=== PATIENT | male | born 1945 | race Caucasian/White ===

== ENCOUNTER 2018-05-02 10:34 | Outpatient (CLI) | payer OTHER, SELFPAY ==
[2018-05-03 10:18] LABS: PSA, Diagnostic 2.9 ng/ml (0-6.5)
== END 2018-05-02 10:35 ==
PROVIDERS: PCP Family Medicine; Visit Provider Urology
DX: R97.20 Elevated prostate specific antigen [PSA] (principal); N40.1 Benign prostatic hyperplasia with lower urinary tract symptoms; N13.8 Other obstructive and reflux uropathy
CPT/HCPCS: 36415; 84153

== ENCOUNTER 2018-05-21 10:00 | Outpatient (RCR) | payer OTHER, SELFPAY ==
--- NOTE | 2018-04-25 09:00 | PTTR_ITS ---
DATE: 04/25/18 SUBJECTIVE: Kevin stating he had mild reproduction of sciatica following hip extension exercises we completed last session. This lasted for a few days, then resolved. He has tried to attempt sleeping in his bed for 2-3 nights, but he continues to wake up due to discomfort. He has resorted to his recliner where he sleeps excellent, so he chooses to stay in the recliner, otherwise he has been painfree aside from hip extension episode. Remains compliant with aquatics. Manual therapy: ([id number]). Unilateral knee to chest, figure 4 and supine twist prolonged stretching, prolonged SLR for sciatic nerve floss, end ranges. R sidelying L lumbar facet gapping via log roll grade 4 with hips and knees at 90/90 with LE lowering over the plinth for L sided gapping. Therapeutic procedures ([id number]). * x See flow sheet: Completed intrinsic lumbopelvic femoral stabilization efforts with myself working posterior fascial change as well as TRA and proceeds with wellness activities per my direction. * Direct treatment time: 30 mins Total treatment time: 50 mins A: Continues to move in a forward direction with reduced pain. Demonstrating improved intrinsic activation with controlled breathing, continues to have presentation of remarkable stiffness with transitional movements, transfers and basic mobility about the clinic. Now that his pain is under more control initiate more of a conditioning program and some self spinal mobilization exercises hopefully attend to this without pain exacerbation. Will adjust program per his tolerance. P: Proceed 1x a week per POC. JH/dl
--- NOTE | 2018-05-02 11:15 | PTTR_ITS ---
DATE: 05/02/18 OBJECTIVE: Co-treatment with ROMERO Cm. Please see her note for specifics. Therapeutic procedures ([id number]). * X See flow sheet: For intrinsic core/glut strengthening progressing to functional movement patterns including squats and hip pre's. * X Provided skilled instruction in proper exercise performance: * X Provided skilled manual cues to facilitate proper muscle recruitment and/ or movement pattern: Direct treatment time: 30 minutes Total treatment time: 30 minutes Mag Chowdhury RETAIL WIRELESS ASSOCIATE
--- NOTE | 2018-05-02 12:18 | PTTR_ITS ---
DATE: 05/02/18 SUBJECTIVE: Has felt great since last seeing me, but still unable to sleep in bed without pain. Has been doing almost daily aquatic exercise. OBJECTIVE: KX applied to all codes N/A Manual therapy: ([id number]). Bilateral KTC, Figure 4, Supine twist, SLR prolonged stretches, with end range oscillations as appropriate. B Hip flexor stretching is sidelying. CPA' and UPA' s throughout all lumbar segments extensively. He was then seen by Mag Chowdhury PTA for ther ex routine per my direction, see her note. Direct treatment time: 25 minutes Total treatment time: 25 minutes Assessment: Continues to present with gross hypomobility through B hips, L>R, and segmental limitation through the spine, consistent with his arthritic diagnosis. However, PT management, as seemed to allow for good mobility gains and decompression through the R side, so he is no longer suffering from nerve root compromise, and has resolution of sciatica. Continue with mobilization and strengthening efforts due to his findings of remarkable to limitations and intrinsic weakness and deconditioning through the back and hips, in hopes of improving comfort in bed. Plan: Resume POC in one week. Patient to remain complaint with HEP and aquatics.
--- NOTE | 2018-05-09 12:11 | PTTR_ITS ---
DATE: 05/09/18 SUBJECTIVE: Kevin reporting he has done fairly well. States he stood for long time periods since seeing me at [facility], and sat for tractor pulls. This allowed by exacerbation of central low back pain and left lateral hip discomfort, which is now coming and going. He is still unable to sleep in his bed. OBJECTIVE: Manual therapy: ([id number]). Right Mulligan SLR and prolonged SLR, unilateral knee to chest and figure 4 supine twist. Repeat on the left side, which was much more hypo mobile compared to the right. Complete UPAs and unhairer to the lumbar spine at a Grade 4 with severe hypo mobility noted throughout. IASTM down regulations through the thoracolumbar paraspinals and lumbar fascia. Direct treatment time: 30 minutes Total treatment time: 30 minutes Assessment: Kevin continues to present with a remarkable amount of hypo mobility through the spine consistent with a history of lumbar surgery, as wel as global arthritis. His amount of stiffness is certainly contributing to nerve root compromise in his back. Will continue to attempt decompression and improve mobility of his back with mobilization efforts, as well as with intrinsic strengthening. However, his progress is very slow. Most remarkable lack of change is with his inability to sleep in bed, but his daytime activity level has greatly improved. I think it is fair to have him seek a consultation with [facility] for consideration of injection to improve his tolerance to prolonged sitting as well as sleep. In the meantime, he remains appropriate for P.T. management, for general mobilization to assist with decompression and mobility of the right sided nerve roots and intrinsic core strengthening, but will try to wean frequency down to 1 1/2 to 2 weeks pending his response. Plan: As indicated above seeing patient 1x every 1 1/2 to 2 weeks for continued mobilization of the lumbar spine, dural tissues and hips to improve sacrolumbar mobility as well as intrinsic strengthening. The patient will continue with his independent pool program for self management of symptoms. NAYA/rebecca
--- NOTE | 2018-05-21 08:37 | PTTR_ITS ---
DATE: 05/21/18 SUBJECTIVE: Kevin states he is frustrated he continues to get stiffer and stiffer. He was doing very well up until about 3-4 weeks ago, but he feels despite his compliancy with aquatics and stretching and PT, he is feeling global stiffness through his back and bilateral hips.He intends to follow-up with Dr. Wilcox's office for initiation of further intervention as it is really limiting his capabilities around his home. He feels he cant stand for more than 30-40 min. at a time or lift anything heavy without increasing his either low back discomfort or stiffness, and he still cannot sleep in his bed. His x-ray did diagnose [id number] arthritis at the L hip, and Brenden had stated that until he had groin pain, they wouldn't consider any further intervention,but Kevin feels that it is really limiting him at this point. He also states that he hasn't had a follow-up with his PCP in regards to any other type of bloodwork or any rheumatology visits in the past. He does explain a diet of donut daily every morning and he is borderline diabetic. OBJECTIVE: Manual therapy: ([id number]).Bilateral prolonged hamstring stretching, unilateral and bilateral knee to chest mobilization, bilateral supine twist beginning at 20 degrees rotation bilaterally ending at about 45-50 degrees bilaterally.Figure 4 stretching only about 10 degrees of ER, progressing to about 30 degrees with 90 degree hip flexion. Initially start with 80 degrees hip flexion. Complete double knee to chest lumbar rotation mobilization to 10 degrees, progressing to 40 degrees bilaterally. Pt education: encouraged follow-up with PCP in regards to further consultation with rheumatology or further bloodwork for inflammatory markers. Suggest dietary changes to include reduction, if not complete elimination of gluten and sugar considering his borderline diabetes condition and daily intake of gluten. He was educated as to how this can influence his inflammation in his system. Encouraged to continue to follow-up with Brenden considering his discomfort. Otherwise, continue to encourage 2x/week aquatic interventions. He is welcome to come to our clinic as his schedule allows to utilizing non-WB cardio equipment anytime to encourage mobility of his hips. Direct treatment time: 23 min Total treatment time: 23 min Assessment: Kevin has plateaued at this point. He continues to demonstrate remarkable amount of stiffness to the low back and hips. Since I have treated this pt on and off for 2 or 3 years, this has always been an issue for him. While we have resolved his sciatica symptoms and improved his back pain, his main complaint at this point is of gross stiffness that he feels is worsening despite our mobilization efforts. I think there are likely many factors contributing to Kevin's condition, with his known spinal arthritis, we are aware of his [id number] hip arthritis in his L knee, but he also has some lifestyle choices that are likely encouraging some inflammation. I think it is appropriate for him to follow-up with orthopaedics. Also discuss with his PCP in regards to dietary and bloodwork needs. Plan: PT to be completed on a p.r.n basis for treatment of his discomfort related to his stiffness. Otherwise, he will continue with independent pool therapy. Follow -up with ortho and PCP as documented above. cc:Dr. Wilcox cc:Amanda PERSON/radha
== END 2018-05-25 23:59 | disposition home or self-care (01) ==
LOC: PT 10:00
PROVIDERS: PCP Family Medicine; Referring Provider Emergency Medicine; Visit Provider Emergency Medicine
DX: M54.41 Lumbago with sciatica, right side (principal); M53.3 Sacrococcygeal disorders, not elsewhere classified; M62.81 Muscle weakness (generalized)
CPT/HCPCS: 97110; 97140

== ENCOUNTER → 2018-06-07 00:53 | Outpatient (CLI) | payer OTHER, SELFPAY ==
--- NOTE | 2018-06-07 10:01 | DI.RAD_ITS ---
SYMPTOMS/DIAGNOSIS: LT HIP PAIN, M16.12, PRIMARY OSTEOARTHRITIS LT HIP LEFT HIP INJECTION: Fluoroscopy Time: 3 sec Fluoroscopy was utilized by Dr. Wilcox during the performance of a left hip injection. Please refer to the procedure report for complete details.
[2018-06-07] MEDS: Omnipaque 300 MG/ML 10 ML BTL IJ (11:06)
[2018-06-07] MEDS: methylPREDNISolone ACETATE 80 MG/ML VIAL IM (11:07)
--- NOTE | 2018-06-07 12:15 | W.PROCNOTE ---
Date of service: 06/07/18 Time of Service: 12:18 Procedure Note Date of procedure: 06/07/18 Procedure: Left Hip Injection with Fluoroscopic Guidance Surgeon/Proceduralist/Physician: [place] Wilcox Procedure Diagnosis: Left Hip Osteoarthritis Procedure Indications: Kevin has had persistent pain of the LEFT hip and groin. Noninvasive measures have been tried. To serve as both diagnostic and therapeutic, an injection under fluoroscopy was recommended. I had discussed the risks of the procedure and the patient elected to proceed. Procedure Description: Kevin was greeted in the flouroscopy room. The correct side was identified and the consent was reviewed with the patient and signed. The patient was then placed in the supine position on the fluoroscopy table. The LEFT hip was then prepped with Chloraprep. The anterolateral injection starting point was identiifed by bony landmarks and fluoroscopy. The skin and soft tissue in the tract of the injection was anesthetized with 1% Lidocaine. A spinal needle was then inserted deep into the hip joint at the level of the lateral femoral neck under fluoroscopic guidance. A small amount of Omnipaque solution was injected to confirm intraarticular placement. Once confirmed, the hip was injected with 6cc of 0.5% Bupivicaine and 80mg of Depo-Medrol. A bandaid was placed on the injection site. The patient tolerated the procedure well and noted improvement in pre-injection pain.
== END ==
PROVIDERS: PCP Family Medicine; Visit Provider Student in an Organized Health Care Education/Training Program
DX: M16.12 Unilateral primary osteoarthritis, left hip (principal); M25.552 Pain in left hip
CPT/HCPCS: 20610; 77002; J1040

== ENCOUNTER 2018-06-18 13:15 | Outpatient (REF) | payer OTHER, SELFPAY ==
[2018-06-18 13:43] LABS: HCT 45.5 % (40.0-50.0); HGB 15.9 g/dL (13.5-17.5); Mean Corp. HGB Concentration 34.9 g/dL (32.0-36.0); Mean Corpuscular Hemoglobin 31.9 pg (27.0-33.0); Mean Corpuscular Volume 91.4 fL (80-95); Mean Platelet Volume 11.4 fL (8.0-11.0); Platelet Count 189 x1000/uL (130-400); RBC 4.98 m/cumm (4.50-6.00); White Blood Cell Count 6.45 k/cumm (4.4-10.8)
[2018-06-18 13:59] LABS: ALT 61 U/L (12-78); AST 41 U/L (15-37); Albumin 3.8 g/dL (3.4-5.0); Alkaline Phosphatase 94 U/L (46-116); Anion Gap 10.3 mmol/L (3-11); BUN 14 mg/dL (7-18); Bilirubin, Total 0.7 mg/dL (0.2-1.0); CO2 29.7 mmol/L (21.0-32.0); CREATININE 0.95 mg/dL (0.70-1.30); Calcium 9.3 mg/dL (8.5-10.1); Chloride 102 mmol/L (98-107); Cholesterol 173 mg/dL (50-200); Glucose 199 mg/dL (70-100); HDL Cholesterol 36 mg/dL (40-60); LDL CHOLESTEROL 116 mg/dL (<100); Potassium 3.7 mmol/L (3.5-5.1); Sodium 142 mmol/L (136-145); Total Protein 6.7 g/dL (6.4-8.2); Triglyceride 155 mg/dL (30-150)
== END 2018-06-18 13:35 ==
LOC: NCHCN 13:15
PROVIDERS: PCP Family Medicine; Visit Provider Family Medicine
DX: Z00.00 Encounter for general adult medical examination without abnormal findings (principal); Z13.1 Encounter for screening for diabetes mellitus; Z13.0 Encounter for screening for diseases of the blood and blood-forming organs and certain disorders involving the immune mechanism; Z13.228 Encounter for screening for other metabolic disorders; Z13.220 Encounter for screening for lipoid disorders
CPT/HCPCS: 80053; 80061; 83721; 85027; 83036

== ENCOUNTER → 2018-06-18 14:23 | Outpatient (BNVA) | payer OTHER, SELFPAY | PROVIDERS: Visit Provider Student in an Organized Health Care Education/Training Program | DX: M16.12 Unilateral primary osteoarthritis, left hip (principal) | CPT/HCPCS: 99212; 99213 ==

== ENCOUNTER → 2018-07-19 07:42 | Outpatient (BNVA) | payer OTHER, SELFPAY | PROVIDERS: PCP Family Medicine; Referring Provider Family Medicine; Visit Provider Student in an Organized Health Care Education/Training Program | DX: R69 Illness, unspecified (principal) ==

== ENCOUNTER 2018-07-19 09:59 | Outpatient (CLI) | payer OTHER, SELFPAY ==
--- NOTE | 2018-07-19 10:04 | DI.RAD_ITS ---
SYMPTOM/DIAGNOSIS: PAIN, RT HIP INJECTION RIGHT HIP INJECTION: Fluoroscopy Time: 3 seconds Fluoroscopy was utilized by Dr. Wilcox during right hip injection. Hard copy shows intra-articular injection of the right hip.
[2018-07-19] MEDS: Omnipaque 300 MG/ML 10 ML BTL IJ (10:05)
[2018-07-19] MEDS: methylPREDNISolone ACETATE 80 MG/ML VIAL IM (10:14)
[2018-07-19] MEDS: Bupivacaine 0.5% Pres-Free 10 ML VIAL 5 ML IJ (10:17)
--- NOTE | 2018-07-19 10:36 | W.PROCNOTE ---
Date of service: 07/19/18 Time of Service: 10:36 Procedure Note Date of procedure: 07/19/18 Procedure: Right Hip Injection with Fluoroscopic Guidance Surgeon/Proceduralist/Physician: South Wilcox Procedure Diagnosis: Right Hip Osteoarthritis Procedure Indications: Kevin has had persistent pain of the RIGHT hip and groin. Noninvasive measures have been tried. To serve as both diagnostic and therapeutic, an injection under fluoroscopy was recommended. I had discussed the risks of the procedure and the patient elected to proceed. Procedure Description: Kevin was greeted in the flouroscopy room. The correct side was identified and the consent was reviewed with the patient and signed. The patient was then placed in the supine position on the fluoroscopy table. The RIGHT hip was then prepped with Chloraprep. The anterolateral injection starting point was identiifed by bony landmarks and fluoroscopy. The skin and soft tissue in the tract of the injection was anesthetized with 1% Lidocaine. A spinal needle was then inserted deep into the hip joint at the level of the lateral femoral neck under fluoroscopic guidance. A small amount of Omnipaque solution was injected to confirm intraarticular placement. Once confirmed, the hip was injected with 6cc of 0.5% Bupivicaine and 80mg of Depo-Medrol. A bandaid was placed on the injection site. The patient tolerated the procedure well and noted improvement in pre-injection pain.
== END 2018-07-19 10:19 ==
PROVIDERS: PCP Family Medicine; Visit Provider Student in an Organized Health Care Education/Training Program
DX: M25.551 Pain in right hip (principal); M16.11 Unilateral primary osteoarthritis, right hip
CPT/HCPCS: 20610; 77002; J1040

== ENCOUNTER 2018-07-27 10:47 | Emergency (ER) | payer OTHER, SELFPAY ==
[2018-07-27 11:03] VITALS: BP 146/93; PULSE 67; RESP 16; TEMP 36.7; O2SAT 96
[2018-07-27] MEDS: Tetracaine 0.5% 4 ML BTL (11:15)
[2018-07-27] MEDS: Balanced Salt Solution 15 ML BTL (11:20)
--- NOTE | 2018-07-27 11:25 | ED.GENADUL_ITS ---
Discharge Plan Disposition Patient Disposition: HOME Condition: Stable Discharge Details Chief Complaint: EyeProblem Clinical Impression: Contact lens stuck Primary Care Provider: Amanda Person ED Provider: Maurice Menezes Home Meds and New Rx's Prescriptions: No Action lisinopril-hydrochlorothiazide 1 EACH tablet 1 ea PO DAILY RF: 0 desloratadine [Clarinex] 5 MG tablet 5 mg PO DAILY RF: 0 verapamil [Calan SR] 240 MG tablet extended release 240 mg PO DAILY RF: 0 azelastine [Astelin] 137 MCG aerosol,spray 137 mcg NS DAILY RF: 0 fluticasone 16 GM spray,suspension 16 gm NS DAILY RF: 0 atenolol 50 MG tablet 50 mg PO DAILY RF: 0 finasteride 5 MG tablet 5 mg PO DAILY RF: 0 cyclobenzaprine 10 MG tablet 10 mg PO Q8H PRN (Reason: Muscle Spasm) Qty: 9 RF: 0 Discharge Instructions Instructions: Corneal Abrasion (ED) Additional Instructions: Proceed immediately to [facility] for further treatment and evaluation per Referrals: [facility] [Outside] (Proceed immediately to their office for further treatment of your condition) Discharge Data Discharge Date/Time-TO BE ENTERED AT DEPARTURE: 07/27/18 11:33 Medical Decision Making Patient presenting to the emergency department for chief complaint of getting his lens stuck in his right eye. Patient states that he has tried to remove it multiple times and now his eye is significantly red. Patient states that his vision is as if his contact lens was and but he is unable to remove it. Patient denies any injury or trauma. Perform fluorescein stain and was unable to visualize the contact lens but there is significant redness and swelling noted. Given inability to remove the lens did call and speak with Dr. Lowery whom stated that patient could be discharged to their office and that he would fully evaluate patient's condition. Patient was agreeable to this disposition and stated clear understanding to present straight to their office. Patient is otherwise stable with no other acute medical conditions and vision is intact with no neurological symptoms so I do feel that he is able to be safely discharged. HPI General Mode of arrival: ambulatory . Date/Time Provider Initiated Documentation: 07/27/18 11:10 . Limitations to Documentation: no limitations . Information obtained by: patient and RN notes reviewed . History of Present Illness 72 year old M presents to the emergency department with the chief complaint of Contact lens stuck, described as mild and moderate, with intensity rated at 2. Quality is described as burning, and is localized to the eyes and right. Patient started experiencing this day(s) (1) and it has been constant. No exacerbating factors reported . Patient did receive the following treatments prior to arrival, none Related Data Home Medications Medication Instructions Recorded Confirmed atenolol 50 mg PO DAILY 02/21/18 07/27/18 azelastine [Astelin] 137 mcg NS DAILY 02/21/18 07/27/18 cyclobenzaprine 10 mg PO Q8H PRN #9 tab 02/21/18 07/27/18 desloratadine [Clarinex] 5 mg PO DAILY 02/21/18 07/27/18 finasteride 5 mg PO DAILY 02/21/18 07/27/18 fluticasone 16 gm NS DAILY 02/21/18 07/27/18 lisinopril-hydrochlorothiazide 1 ea PO DAILY 02/21/18 07/27/18 verapamil [Calan SR] 240 mg PO DAILY 02/21/18 07/27/18 Previous Rx's Medication Instructions Recorded cyclobenzaprine 10 mg PO Q8H PRN #9 tab 02/21/18 Allergies Allergy/AdvReac Type Severity Reaction Status Date / Time No Known Allergies Allergy Unverified 07/27/18 11:07 General Stated Complaint: EyeProblem DENA: 4 Review of Systems Constitutional Denies fever(s) and Denies headache(s) Eyes Reports as per HPI, Denies change in vision, Denies eye discharge and Reports eye pain ENT Denies dizziness and Denies headache(s) Cardiovascular Denies chest pain and Denies dyspnea Respiratory Denies dyspnea Gastrointestinal Denies nausea and Denies vomiting Neurologic Denies confusion, Denies dizziness and Denies headache(s) Psychiatric Denies confusion PFSH Social History Smoking/Tobacco Use Status: Never Exam Const General: cooperative and no acute distress Orientation: alert, awake and oriented x3 HENMT Head: normal to inspection, normocephalic and atraumatic Eyes Visual Hart: normal visual hart by confrontation Alignment and Position: alignment normal Periorbital: periorbital findings abnormal Conjunctivae: conjunctival abnormality right conjunctival injection diffuse Sclera: scleral abnormality right scleral injection diffuse Cornea: corneas normal Pupils: PERRL and normal by confrontation EOM: EOM intact bilaterally Direct ophthalmoscopy: normal light reflex Resp Effort & Inspection: normal respiratory effort and able to speak in complete sentences Auscultation: clear to auscultation bilaterally Cardio Rate: regular rate Rhythm: regular rhythm Heart Sounds: S1 normal and S2 normal Neuro General: alert, awake, oriented x3, gait normal, moves all extremities and no meningeal signs Speech: speech normal Course Vital Signs Temperature 36.7 C 07/27/18 11:03 Pulse 67 07/27/18 11:03 Respiratory Rate 16 07/27/18 11:03 Blood Pressure 146/93 H 07/27/18 11:03 Pulse Oximetry 96 07/27/18 11:03 Temperature 36.7 C 07/27/18 11:03 Temperature Source Temporal Artery Scan 07/27/18 11:03 Pulse 67 07/27/18 11:03 Respiratory Rate 16 07/27/18 11:03 Respiratory Effort Non-Labored 07/27/18 11:06 Blood Pressure 146/93 H 07/27/18 11:03 Blood Pressure Position Sitting 07/27/18 11:03 Pulse Oximetry 96 07/27/18 11:03 Oxygen Delivery Method Room Air 07/27/18 11:03 Oxygen Flow Rate 0 07/27/18 11:03 Pain Level 2 07/27/18 11:03
== END 2018-07-27 11:33 | disposition home or self-care (01) ==
LOC: ER 11:36
PROVIDERS: Emergency Provider Nurse Practitioner Family; PCP Family Medicine
DX: H57.89 Other specified disorders of eye and adnexa (principal)
CPT/HCPCS: 99283

== ENCOUNTER 2019-02-20 01:01 | Outpatient (CLI) | payer MEDICARE, SELFPAY ==
--- NOTE | 2019-02-20 10:00 | DIABASSESS_ITS ---
DESCRIPTION: Ken Arreguin presents for diabetes self management newly diagnosed with type 2 diabetes. He has been symptomatic of hyperglycemia with blurred vision at times. NUTRITION: Ken lost 65 pounds / months by changing his diet. Over the past 6 weeks he lost 13 pounds by cutting out lunch. He eats st helenian muffin with peanut butter as his first meal; hamburger/hotdogs, last night faroese toast with nutella. He has frozen yogurt in the evening. STRESS: denies. Has things he enjoys doing. He does not monitor his blood sugars and this was not mentioned. PHYSICAL ACTIVITY: states he walks. MEDICATION: Taking Metformin 500mg twice daily with slight GI side effects.He has no instruction for increasing this. INTERVENTION:Discussed importance of intensive early intervention to prevent medication needs. Reviewed Diabetes Food Guide focused on limiting carbohydrate portions and focusing on protein and vegetables. States he drinks water. Encouraged 150 minutes physical activity per week in a variety of methods including stretching, strengthening and cardiovascular. Random blood sugar today 150mg/dl. DIscussed what this means and he is complimented in improving his blood sugars with lifestyle changes. Discussed monitoring at home and he is wishing to do this. Reviewed procedure for monitoring with demonstration glucometer. 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 PLAN: Ken will balance protein and fat with carbohydrate sources. He will continue his 2 meals a day. request glucometer from his PCP - Nicole will call for Rx. continue physical activity and increase as tolerated He will call his provider if blood sugars are not near goal of less than 150mg/dl after 1 month to see if medication can be increased. He wishes to return for follow up within the month. MNT FOR DIABETES In 1000 Out 10:50 of a 1 hour visitNo DM group education series being offered at this time.
== END 2019-02-20 01:21 ==
PROVIDERS: PCP Family Medicine; Visit Provider Dietitian, Registered
DX: E11.9 Type 2 diabetes mellitus without complications (principal); Z71.3 Dietary counseling and surveillance
CPT/HCPCS: 97802

== ENCOUNTER 2019-02-25 10:03 | Outpatient (CLI) | payer OTHER, SELFPAY ==
--- NOTE | 2019-02-25 09:53 | DI.RAD_ITS ---
SYMPTOM/DIAGNOSIS: PAIN, PLANNING LT JOSE R LEFT HIP: A single view of the hip was obtained and shows marked narrowing of cartilaginous joint space of the hip with significant subchondral sclerosis of the adjacent bones, osteophyte formation of the acetabulum and femoral head and deformity of the femoral head. CONCLUSION: Severe DJD left hip on this single AP view.
== END 2019-02-25 10:23 ==
PROVIDERS: PCP Family Medicine; Referring Provider Family Medicine; Visit Provider Student in an Organized Health Care Education/Training Program
DX: M25.552 Pain in left hip (principal); M16.12 Unilateral primary osteoarthritis, left hip; E11.9 Type 2 diabetes mellitus without complications; I10 Essential (primary) hypertension
CPT/HCPCS: 99213; 73501

== ENCOUNTER 2019-03-21 09:42 | Outpatient (CLI) | payer OTHER, SELFPAY ==
--- NOTE | 2019-03-21 10:07 | HPE_ITS ---
Date of service: 03/21/19 Assessment and Plan (1) Osteoarthritis of left hip: Current visit: No Status: Chronic Left total hip replacement. Details of surgery were discussed with patient as well as risks and pertinent anatomy. All questions were answered. Qualifiers: Osteoarthritis type: primary Qualified Code(s): M16.12 - Unilateral primary osteoarthritis, left hip History of Present Illness Chief Complaint: Left hip pain Narrative: Ken is a 73-year-old male who comes in today for a preop history and physical for a left total hip replacement. He has been dealing with left hip pain that manifests itself as back pain for a few years now. He states that he has pain whenever he walks for long distances, but in the last year or so, it has been bothering him most days. He states that there is always some underlying back pain, but it does get much worse with prolonged walking. He says that if he pushes himself during the day, he gets more severe pain at night, and also into the next day. He has had x-rays performed which show severe arthritis of the left hip with a complete loss of joint space, as well as bone spurs throughout the hip. He has a cam lesion on his femur, and the femoral head appears to be more oblong shape. He has had injections into his left hip which completely eliminated the back pain on the left side, confirming that the pain is coming from his hip. He was also able to get along pretty well after these injections until the most recent injection. He did not get any relief from the most recent injection. Since now injection therapy has become ineffective for him, Dr. Wilcox offers a left total hip replacement which she is anxious to proceed with. Pertinent Surgical Information Ken does have a history of diabetes. His last A1c was done on 02/11/2019, and it was 10.4 at that time. He states that he has changed his diet and is on metformin, and over the past month or so his sugars have been in the 100s. He also states that he feels as though his symptoms have gotten better, and that he is not having as much urinary frequency as he was previously. He will be getting a hemoglobin A1c today during his preop visit, and this will determine if his surgery may have to be delayed for a couple of weeks while he continues to correct these values. Patient denies history of CVA, VT, angina, asthma, COPD, renal or liver disorders, hepatitis, bleeding disorders, immune or thyroid disorders. No complications from anesthesia. Review of Systems Constitutional Denies fever(s) ENT Denies dizziness and Denies sore throat Cardiovascular Denies chest pain, Denies palpitations and Denies dyspnea Respiratory Denies cough and Denies dyspnea Gastrointestinal Denies abdominal pain, Denies melena, Denies hematochezia, Denies diarrhea, Denies nausea and Denies vomiting Genitourinary Denies hematuria and Denies dysuria Neurologic Denies dizziness Endocrine Denies palpitations PFSH Medical History Diabetes mellitus (Chronic) Hypertension (Chronic) History of environmental allergies (Acute) BPH (benign prostatic hyperplasia) (Chronic) Surgical History History of back surgery (Acute) History of carpal tunnel release of both wrists (Acute) Family History Father Heart disease Other Cancer Social History Smoking/Tobacco Use Status: Never Drug use: Never Do you feel safe in your relationship?: Yes Meds Home Medications Medication Instructions Recorded Confirmed Type atenolol 50 mg PO DAILY 02/21/18 03/21/19 History cyclobenzaprine 10 mg PO Q8H PRN #9 tab 02/21/18 03/21/19 Rx finasteride 5 mg PO DAILY 02/21/18 03/21/19 History fluticasone propionate 16 gm NS DAILY PRN 02/21/18 03/21/19 History verapamil [Calan SR] 240 mg PO HS 02/21/18 03/21/19 History levocetirizine 5 mg PO DAILY 03/21/19 03/21/19 History lisinopril-hydrochlorothiazide 1 tab PO DAILY 03/21/19 03/21/19 History metformin 500 mg tablet 500 mg PO BID 03/21/19 03/21/19 History Allergies Allergy/AdvReac Type Severity Reaction Status Date / Time No Known Allergies Allergy Unverified 03/21/19 08:55 Exam [facility] Head: normocephalic and atraumatic General nose exam: no nasal discharge Throat: uvula midline and no uvular edema Other: soft palate rises symmetrically, no erythema Eyes Conjunctivae: conjunctivae normal Sclera: sclerae normal Pupils: PERRL Resp Effort & Inspection: normal respiratory effort Auscultation: clear to auscultation bilaterally and no wheezes Cardio Rate: regular rate Rhythm: regular rhythm Heart Sounds: S1 normal, S2 normal and no murmurs GI Palpation: soft, no hepatosplenomegaly and nontender Auscultation: normal bowel sounds Results Labs : 03/21/19 10:26 03/21/19 10:26
[2019-03-21 10:48] LABS: HCT 46.2 % (40.0-50.0); HGB 16.4 g/dL (13.5-17.5); Mean Corp. HGB Concentration 35.5 g/dL (32.0-36.0); Mean Corpuscular Hemoglobin 31.6 pg (27.0-33.0); Mean Platelet Volume 10.3 fL (8.0-11.0); Platelet Count 258 x1000/uL (130-400); RBC 5.19 m/cumm (4.50-6.00); RBC Distribution Width 13.6 % (11.8-14.1); White Blood Cell Count 7.97 k/cumm (4.4-10.8)
[2019-03-21 11:19] LABS: Hemoglobin A1C 7.6 % (4.5-6.2)
[2019-03-21 11:49] LABS: Anion Gap 10.1 mmol/L (3-11); BUN 12 mg/dL (7-18); CO2 29.9 mmol/L (21.0-32.0); CREATININE 0.96 mg/dL (0.70-1.30); Chloride 103 mmol/L (98-107); Glucose 141 mg/dL (70-100); Potassium 3.6 mmol/L (3.5-5.1); Sodium 143 mmol/L (136-145)
== END 2019-03-21 10:02 ==
PROVIDERS: PCP Family Medicine; Visit Provider Student in an Organized Health Care Education/Training Program
DX: M25.552 Pain in left hip (principal); M16.12 Unilateral primary osteoarthritis, left hip; E11.9 Type 2 diabetes mellitus without complications; I10 Essential (primary) hypertension; Z01.812 Encounter for preprocedural laboratory examination; Z01.818 Encounter for other preprocedural examination
CPT/HCPCS: 36415; 80048; 85027; 86850; 86900; 86901; NC; 83036

== ENCOUNTER 2019-03-27 00:58 | Outpatient (CLI) | payer OTHER, SELFPAY ==
--- NOTE | 2019-03-27 10:00 | DIABASSESS_ITS ---
DESCRIPTION/ASSESSMENT: Ken Arreguin, 73 years old, presents for follow up for diabetes support. Previous A1c 10.4 needing to get this down so he can have hip surgery. A1c this week 7.6. He has lost nearly 20 pounds over the past month according to his scale. He has stopped vanilla coke and all soda; snacks on yogurt or vegetables. Otherwise primarily eating meat and vegetables with occasional small potato or bread. Breakfast is Slovak muffin with egg and emanuel or cheerios/banana. Blood sugars 131-158; 162 before bed. Metformin initially caused diarrhea for him. He is active as his pain allows with walking and swimming.He is scheduled for surgery Monday. INTERVENTION: Discussed maintaining lifestyle changes without feeling deprivation. Discussed medication needs of A1c continues to decrease. Discussed physical activity after surgery. PLAN: He will continue current regimen. He will call if he feels the need for support. Individual MNT __1__ units billed TIME IN: 1000 OUT: 1020 No DM group education series being offered at this time.
== END 2019-03-27 01:18 ==
PROVIDERS: PCP Family Medicine; Visit Provider Dietitian, Registered
DX: Z11.9 Encounter for screening for infectious and parasitic diseases, unspecified (principal); Z71.3 Dietary counseling and surveillance
CPT/HCPCS: 97802

== ENCOUNTER 2019-04-02 10:55 | Inpatient (IN) | payer OTHER, SELFPAY ==
[2019-04-02] VITALS (15 sets, daily range): BP systolic 86–163; BP diastolic 57–94; PULSE 61–93; RESP 14–83; TEMP 35.8–36.7; O2SAT 91–100
[2019-04-02] MEDS: Acetaminophen 500 MG TAB 1000 MG PO ×2 (11:40→19:58)
[2019-04-02] MEDS: Lactated Ringers 1,000 ML 80 ML IV ×3 (11:41→15:49)
[2019-04-02] MEDS: oxyCODONE-CR 10 MG TABCR PO (11:41)
[2019-04-02] MEDS: Celecoxib 200 MG CAP 400 MG PO (11:41)
[2019-04-02] MEDS: ceFAZolin 2 GM/50 ML BAG IVPB (13:10)
[2019-04-02] MEDS: Normal Saline 20 ML VIAL (15:36)
[2019-04-02] MEDS: Bupivacaine 0.25% Pres-Free 30 ML VIAL (15:36)
[2019-04-02] MEDS: Ketorolac 30 MG/ML VIAL (15:36)
--- NOTE | 2019-04-02 15:39 | DI.RAD_ITS ---
SYMPTOMS/DIAGNOSIS: OSTEOARTHRITIS, LEFT HIP LEFT HIP IN THE OR: Fluoroscopy Time: 55.3 sec C-arm fluoroscopy was utilized by Dr. Wilcox and shows a total hip joint replacement in position on the left.
[2019-04-02] MEDS: Albuterol 2.5 MG/3 ML INH SOLN VIAL (16:05)
--- NOTE | 2019-04-02 16:40 | DI.RAD_ITS ---
SYMPTOM/DIAGNOSIS: S/P LT JOSE R PORTABLE AP PELVIS: Two views were obtained and show left hip prosthesis in position. The components appear well seated. Severe degenerative changes noted involving the right hip.
[2019-04-02] MEDS: HYDROmorphone 2 MG/ML VIAL 0.5 MG IVP (18:13)
[2019-04-02] MEDS: metFORMIN 500 MG TAB PO (18:14)
[2019-04-02] MEDS: Insulin Aspart 300 UNITS/3 ML PEN SC (18:15)
[2019-04-02] MEDS: Normal Saline Flush 10 ML SYR IV (18:27)
--- NOTE | 2019-04-02 18:47 | NUR.NOTE ---
Patient received from PACU, approximate arrival time was 1700. Report received from SNEHAL Rodriguez. Patient arrived via stretcher and was transferred to a med/surg bed. Vital signs started. Patient's incision covered with a mepilex and was clean, dry, and intact. Patient denied pain at that time. Patient exhibited significant snoring when asleep and oxygen saturation decreased so patient was put on CO2 monitoring. TEDs on and SCDs applied. Nursing Note:
[2019-04-02] MEDS: Aspirin E.C. 81 MG TABEC PO (19:57)
[2019-04-02] MEDS: Celecoxib 200 MG CAP PO (19:57)
[2019-04-02] MEDS: oxyCODONE 5 MG TAB PO (23:46)
[2019-04-03] VITALS (7 sets, daily range): BP systolic 100–102; BP diastolic 61–65; PULSE 74–85; RESP 14–19; TEMP 36.4–36.8; O2SAT 94–96
[2019-04-03] MEDS: oxyCODONE 5 MG TAB PO (04:59)
[2019-04-03] MEDS: Lactated Ringers 1,000 ML 80 ML IV (04:59)
[2019-04-03 07:25] LABS: HCT 37.5 % (40.0-50.0); HGB 13.3 g/dL (13.5-17.5); Mean Corp. HGB Concentration 35.5 g/dL (32.0-36.0); Mean Corpuscular Hemoglobin 31.9 pg (27.0-33.0); Mean Corpuscular Volume 89.9 fL (80-95); Mean Platelet Volume 11.1 fL (8.0-11.0); Platelet Count 244 x1000/uL (130-400); RBC 4.17 m/cumm (4.50-6.00); RBC Distribution Width 13.2 % (11.8-14.1); White Blood Cell Count 14.91 k/cumm (4.4-10.8)
--- NOTE | 2019-04-03 07:38 | ROE_ITS ---
Date of service: 04/02/19 Time of Service: 16:30 Operative Note DATE OF PROCEDURE: 04/02/19 PRE-OP DIAGNOSIS: Left Hip Osteoarthritis POST-OP DIAGNOSIS: same PROCEDURE: Left Anterior Total Hip Arthroplasty SURGEON: [place] UNDERWRITING ACCOUNT REPRESENTATIVE: Jose Guadalupe Norris ANESTHESIA: spinal ESTIMATED BLOOD LOSS: 1,200 PATHOLOGY: none sent COMPLICATIONS: None Patient was transported to: PACU Patient's condition: stable Implants: 1. Depuy [place] Acetabular Component, 60 mm 2. Depuy Acetabular Liner, 60 x 36 mm 3. Depuy Corail [Standard Collared] Femoral Stem, Size 15 4. Depuy [Altrx Ceramic Femoral Head], Size 36+8.5 mm Indications: I have seen Kevin in clinic for symptoms of hip arthritis, confirmed with radiographic findings. Kevin has exhausted nonoperative methods and was having significant limitations in daily function and desired better function and less pain. I discussed the technical details of a hip replacement. I explained the risks of the procedure to include, but not limited to, bleeding, infection, pain, stiffness, fracture, damage to nerves and vessels, damage to muscles and tendons, loosening, instability, leg length inequality, need for repeat procedure, blood clot and cardiopulmonary demise. Despite these risks, he elected to proceed. Findings: There was significant signs of arthritis throughout the hip. There is a large floor osteophyte as well as neck osteophytes. Additionally, his hip was very tight. I had difficulties gaining access to the acetabulum primarily and had to more extensively release than usual. This resulted in a prolonged operative time and increased blood loss. Procedure Description: Kevin was greeted in the preoperative holding area where the correct side was identified and marked. The consent was reviewed with the patient and signed. The history and physical was updated. All questions were answered. Kevin was taken back to the operating room. A spinal anesthetic was attempted but was unsuccessful. Therefore, he was converted to a general anesthetic. The patient was placed into the supine position on the operating room table. The patient was then positioned onto the ARCH table. Both feet were wrapped with Webrill cotton wrap along with Coban. The feet were placed in specialized boots for the ARCH table, well seated within the boot and secured. SCDs were applied. The patient was then slid down onto a peroneal post and the nonoperative leg was secured in a leg pantoja attached to the table. The operative side was placed into the ARCH table attachment and bed height and positioning was secured. A preoperative AP pelvis was obtained to serve as a reference for determining leg lengths. Prophylactic antibiotics in the form of cefazolin were administered. 1g of Tranxemic Acid was given intravenously within 30 minutes of incision. The left leg was then prepped with Chloraprep and draped in a standard fashion with a large shower-curtain type drape with Iodine impregnated skin protection. A timeout to confirm correct identity, side and site, procedure, allergies, anesthesia, and medical concerns was performed. An obliquely oriented incision was made starting lateral to the ASIS and running distal over the Tensor Fascia Perlita (TFL) muscle belly toward the fibular head, approximately 10cm. The skin and soft tissue was dissected sharply, through Chuck?s fascia, and to the fascia of the TFL. With the fascia and superior border of the IT band identified, the fascia was incised with a new knife just above any perforators from the IT band. The TFL muscle belly was bluntly dissected away from the fascia and moved laterally. The fat between TFL and rectus was identified to ensure the dissection was not within the TFL. Blunt dissection created space between abductors and the capsule and retractor was placed over the lateral femoral neck. The fibers of the rectus femoris tendon were identified and these were freed from the anterior capsule. A second cobra retractor was placed around the medial femoral neck. The TFL was further re tracted laterally to show the deep fascia. Careful dissection through this layer identified three main crossing vessels of the lateral femoral circumflex. These were cauterized in multiple locations and then cut without any noticeable bleeding. The TFL was further released bluntly from the deep fascia to expose anterior hip capsule and fat the Long orthopaedic retractor was then placed beneath the TFL and against sartorius and medial soft tissues to protect and retract the soft tissues. A T-capsulotomy was then performed starting at the superior lateral acetabulum and moving distally to the intertrochanteric ridge. These capsular flaps were tagged with a No. 1 Ethibond and elevated from within. The capsular flaps were released to the shoulder of the lateral neck and to the lesser trochanter to give excellent visualization of the proximal femur. A neck osteotomy was performed using an oscillating saw based on preoperative templates. This cut started in the shoulder and of the lateral neck and exited medially. The saw was at all times directed medially to avoid injury to the greater trochanter. 6cm of traction was applied to the leg and the osteotomy opened. The femoral head was removed with a corkscrew, making sure to protect the TFL on its exit. This was measured on the back table to determing the starting reamer size. Portions of the rectus obscuring visualization were minimally elevated off the superior acetabulum. An anterior retractor was placed over the anterior wall between capsule and labrum. A posterior retractor was placed similarly. This provided excellent visualization. The contents of the cotyloid fossa were removed with electrocautery and the labrum was removed with a knife. There was a notable floor osteophyte. There was significant chondromalacia of the superior acetabulum. Access into the acetabulum is quite difficult. With normal retractor placement in my normal releases of the labrum and the medial capsule off of the femur, I was still unable to gain access with the reamers into the acetabulum. A very limited release was performed of the soft tissues off the anterior acetabulum which gained some anterior excursion. His rectus for Shukri was noted to be's quite tight. I made sure relaxation was on board with anesthesia as well to assist. I move the posterior tractor to a slightly more intracapsular position rather than between the capsule and labrum. This allowed some more excursion of the posterior musculature and allowed access into the acetabulum. Acetabular reaming began with a 53 mm reamer. This first reaming was directed anterior to posterior and medial to get down to the true floor. This was inspected and reamed until the true floor was reached. I then reamed sequentially up to a 59 mm reamer where good fit was obtained. The larger reamers were oriented based on anatomical reference of the anterior and lateral rosales to ensure proper abduction and anteversion. Positioning and size was confirmed with the fluoroscopy. A 60 mm Depuy Plaquemine acetabular component was selected. The acetabulum was reamed around the periphery with the selected acetabular size to prevent a rim fit. The deep tissues were irrigated. The acetabular component was then impacted in a position of about 40-45 degrees of abduction and 15-20 degrees of anteversion, using the patient?s anatomy as the ultimate landmark. Fluoroscopy was used to confirm this. There was excellent office assistant of the acetabular component and the inserting handle was removed. The acetabular liner, Depuy 60 x 36 mm polyethylene liner, was inserted and lined up with the tines of the acetabular component. There was no soft tissue interposition. The liner was then impacted into position and confirmed to be well-seated. A portion of the delmy-articular cocktail was then injected around the acetabulum into the capsule and periosteum. This cocktail consisted of 50cc of 0.25% Bupivicaine and 20cc of Exparel, expanded to a total of 120cc. Traction was released from the femur. The leg was rotated to 120 degrees. Any remaining medial capsule was released until the lesser trochanter was easily palpable. A Zamorano retractor was placed medially. The femur really did not want to move laterally. I continue to work on the medial capsule. I cautiously released a portion of the posterior capsule avoiding complete release and posterior vasculature. The lateral capsule was further released into the shoulder to allow access to the greater trochanter. A Zamorano retractor was placed over the greater trochanter which allowed the trochanter to flip in front of the capsule for excellent exposure. However, the femur still was not elevating enough. Therefore continue to release all remaining capsule off of the greater trochanter all the way to its posterior margin. Obtruator externus was left attached. The leg was brought down into maximal extension and 20 degrees of adduction while ensuring there was no impingement on the acetabulum. Any remnant capsule within the trochanter was released. There was excellent access to the proximal femur. The lateral neck remnant was removed with a rongeur. A blunt canal probe was used to identify the canal and trajectory for later broaching. A box osteotome initiated the broach course. A small curved rasp and a curved curette were used to work laterally. Broaching then began with a size 8 Corail broach. This was inserted manually around the trochanter and into the canal before mallet blows. The broach was seated to a few millimeters below the cut level based on the neck cut and the preoperative template. Sequential broaching was continued until a tight fit was obtained with good rotational control of the femur. A trial standard neck was inserted along with a +5 trial head. The leg was brought out of extension and adduction and then reduced with traction and internal rotation. The leg was stable anteriorly in a position of 30 degrees of extension and 90 degrees of external rotation. Fluoroscopy was used to ensure there was no fracture and the stem was seated well. Leg lengths were checked with an AP pelvis and pelvic reference points. The leg lengths appear to be equal but the offset was still slightly under what his contralateral side had. Therefore, I worked on getting the broach a few millimeters deeper, approximately 2. This was then offset the increase in leg length by going up and had size but again another 2 mm of offset. I then trialed the +8.5 mm head which maintained the leg length and improved the offset. Once content with the desired offset and leg lengths, the leg was brought back into extension, external rotation and adduction. The periosteum and surrounding tissue was injected with remaining portion of the delmy-articular cocktail. The proximal femur was irrigated as well as the deep tissues. The Depuy Corail standard collared stem, size 15, was then manually inserted into the proximal femur making sure to control rotation. It was then malleted into position with light blows, giving breaks to allow bone expansion and decrease risk of fracture. The selected Depuy Altrx Ceramic Head, size 36+8.5 mm, was then placed onto the clean and dry trunnion and secured with impaction onto the tapered fit. The leg was brought back out of extension and adduction and reduced with traction and internal rotation. Stability was confirmed with no shuck at 90 degrees of external rotation and 30 degrees of extension. No impingement through range of motion arc. Final x-ray images were obtained with fluoroscopy to confirm adequate positioning and no intraoperative fracture. There is no noted complication but we did have prolonged operative time which resulted in blood loss of 1200 cc. There is no acute bleeding which was encountered but a constant ooze. The deep tissues were thoroughly irrigated with a pulse lavage. The second dose of TXA 1g was administered intravenously. The capsule was then reapproximated with the previously placed Ethibond sutures. The TFL fascia was finally closed with a No. 2 Stratafix, barbed suture. Deep tissues were then reapproximated with 0 Vicryl and a running 2-0 Vicryl. The skin was closed with a running 4-0 Monocryl in a subcuticular fashion. This was reinforced with skin glue. A Mepilex silver dressing was applied. At the end of the case, all counts were correct. Kevin was transferred to the hospital bed without difficulty and suffering no apparent complication. Kevin has a good prognosis. Physical therapy will start today and without restric tions, weight-bearing as tolerated. Aspirin 81mg BID will be used for DVT prophylaxis.
[2019-04-03 07:51] LABS: Anion Gap 10.1 mmol/L (3-11); BUN 16 mg/dL (7-18); CO2 26.9 mmol/L (21.0-32.0); CREATININE 1.18 mg/dL (0.70-1.30); Calcium 8.8 mg/dL (8.5-10.1); Chloride 102 mmol/L (98-107); Glucose 179 mg/dL (70-100); Potassium 3.6 mmol/L (3.5-5.1); Sodium 139 mmol/L (136-145)
[2019-04-03] MEDS: Aspirin E.C. 81 MG TABEC PO (08:33)
[2019-04-03] MEDS: Pantoprazole 40 MG TABCR PO (08:33)
[2019-04-03] MEDS: Finasteride 5 MG TAB PO (08:33)
[2019-04-03] MEDS: Insulin Aspart 300 UNITS/3 ML PEN SC ×2 (08:33→12:39)
[2019-04-03] MEDS: Normal Saline 1,000 ML 1000 ML IV (08:34)
[2019-04-03] MEDS: Normal Saline Flush 10 ML SYR IV ×2 (08:35→10:39)
--- NOTE | 2019-04-03 09:15 | PT.INIE ---
Date of service: 04/03/19 Time of Service: 08:49 PT Notes Inpatient Physical Therapy Evaluation Date: 04/02/2019 Referring Doctor: South Wilcox MD PT Orders: PT CONSULT: S/P L Anterior JOSE R Precautions: Fall. Standard. WBAT on L LE. Patient Profile/Admitting Diagnosis: Patient is a 73-year-old male with past medical history significant for Diabetes Mellitus and chronic low back pain who has osteoarthritis of left hip S/P anterior total hip arthroplasty on postoperative day 0. PMHX: Medical History Diabetes mellitus (Chronic) Hypertension (Chronic) History of environmental allergies (Acute) BPH (benign prostatic hyperplasia) (Chronic) Surgical History History of back surgery (Acute) History of carpal tunnel release of both wrists (Acute) Social History/Home Situation: Patient lives with in a 2-floor house with 2 steps enter with side posts that he states he could hold onto if needed to get in. He is independent with all aspects of ADLs without the need for an assistive ambulatory device nor adaptive equipment indoors. He uses a 4-4 wheeled walker for outdoors whenever he needs to. 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 Current Functional Limitations: Need for assistance for all transfers and ambulation using a front-wheeled walker Equipment [facility] [place] Subjective: Patient is agreeable to a PT consult and treatment today. He states that his pain has been manageable since this morning. He is hoping that he can go home today. He is agreeable to using a front wheeled walker for now but hopes to eventually go back to using his 4 wheeled walker for outdoor ambulation as soon as he is safe to do so. He states that he has a packet of exercises that he needs to do in order to maximize his mobility level. Objective: General Observation: Patient seen resting in bed. IV in left UE. TEDS on bilateral legs. Agustin catheter in place. Carbon dioxide monitor in place via nasal route. Mepilex Ag on left JOSE R surgical incision. Mental Status: Alert and oriented x4 Pain: 0/10 at rest. 2/10 with mobility activity Vital Signs: Oxygen saturation stayed between 94 to 96% throughout ambulation performance using front wheeled walker. ROM: Right Upper Extremity: Shoulder Flexion WFL. Shoulder abduction WFL. Elbow flexion WFL. Wrist flexion WFL. Functional opening and closing of hand WFL. Left Upper Extremity: Shoulder Flexion WFL. Shoulder abduction WFL. Elbow flexion WFL. Wrist flexion WFL. Functional opening and closing of hand WFL. Right Lower Extremity: Hip flexion WFL. Hip abduction WFL. Knee flexion WFL. Ankle dorsiflexion WFL. Ankle plantarflexion WFL. Left Lower Extremity: Patient is unable to bring the left knee up while seated at edge of bed beyond 90 degrees but was able to do long arc quad without undue discomfort and was able to hold it for 5 to 10 seconds x 5 reps. Hip abduction WFL. Knee flexion WFL. Ankle dorsiflexion WFL. Ankle plantarflexion WFL. Strength: Right Upper Extremity: Shoulder flexors 5/5. Shoulder abductors 5/5. Elbow flexors 5/5. Elbow extensors 5/5. Sales Apprentice strong. Left Upper Extremity: Shoulder flexors 5/5. Shoulder abductors 5/5. Elbow flexors 5/5. Elbow extensors 5/5. Sales Apprentice strong. Right Lower Extremity: Hip flexors 5/5. Hip abductors 5/5. Knee flexors 5/5. Knee extensors 5/5. Ankle dorsiflexors 5/5. Ankle plantarflexors 5/5. Left Lower Extremity:Hip flexors 3-/5. Hip abductors 5/5. Knee flexors 4-/5. Knee extensors 4-/5. Ankle dorsiflexors 5/5. Ankle plantarflexors 5/5. Sensation: Intact as to pain and pressure on bilateral lower extremities. Bed Mobility/Transfers: Rolling independent Supine to sit independent Sit to supine independent Sit to stand SBA Stand to sit SBA Bed to chair SBA Chair to bed SBA Gait: Patient was able to tolerate level surface ambulation of up to 100 feet x 3 using front wheeled walker with only SBA of this PT initially starting off with step to gait pattern but then was eventually able to perform step through gait pattern with pain report of 2/10 on the left hip during each mid stance on the left LE. Gait velocity decrease. Step height on the left side. Patient also tolerated up-and-down three 4 inch steps and two 6 inch steps 3 times with SBA while holding onto bilateral rails using step to gait pattern. Balance: Static Sitting: Good Dynamic Sitting: Good Static Standing: Good Dynamic Standing: Fair Special Tests: Mobility Limitations Standardized Measure [facility] AM-PAC 6 clicks Basic Mobility Inpatient Short Form: Raw Score: 22 CMS Score: 21% deficit Informed Consent/Education: Patient instructed in purpose of PT consult and plan of care. Patient was instructed about standing level balance exercises while holding onto walker or to a sturdy area in the house like the kitchen counter or a sturdy furniture working on heel raises, partial knee bends, and high marches with emphasis given on deep breathing exercises in between each set of exercises. Patient was also instructed on safe techniques and negotiating stairs while holding onto bilateral rails. Assessment: Patient is a 73-year-old male with past medical history significant for Diabetes Mellitus and chronic low back pain who has osteoarthritis of left hip S/P anterior total hip arthroplasty on postoperative day 0. Patient presents with clinical signs and symptoms consistent with current/admitting diagnoses that have resulted to mobility limitations, gait instability, generalized weakness, and impairment of motor control as demonstrated by the following impairment level findings: 1. Decreased strength to hip major muscle groups 2. Impaired standing balance 3. Impaired activity tolerance 4. Limitation of joint range of motion in L hip Impairments are contributing to the following functional limitations: 1. Inability to safely ambulate without assistive device and physical assistance 2. Increase completion time for mobility ADL performance 3. Increased fall risk 4. Inability to negotiate steps alone safely Patient is assessed as a 56735 moderate complexity based on the following: History: Cognitively intact 73-year-old male with past medical history significant for Diabetes Mellitus and chronic low back pain who has osteoarthritis of left hip S/P anterior total hip arthroplasty on postoperative day 0. Examination: Demonstrable impairment in strength, balance, and range of motion with underlying impairments and functional limitations as documented above Presentation:Evolving Decision Makin moderate complexity DISCHARGE RECOMMENDATIONS: Patient goes home today and will need a front wheeled walker to reduce fall risk at discharge destination. collision center manager updated. Marcello huerta that may be him ay benefit from skilled physical therapy services according to orthopedic surgeon timeline recommendations. Patient will be educated and trained on home exercise program per JOSE R exercise protocol in preparation for outpatient physical therapy services. TREATMENT CODE/TIME: 81673 x 30 minutes, 49529 x 15 minutes, 91231 x 12 minutes beginning at 9:36 AM. Thank you very much for this referral. Erica Dutta PT, DPT, [facility]
--- NOTE | 2019-04-03 09:25 | IN_ITS ---
Date of service: 04/03/19 Time of Service: 08:49 PT Notes Inpatient Physical Therapy Evaluation Date: 04/02/2019 Referring Doctor: South Wilcox MD PT Orders: PT CONSULT: S/P L Anterior OJSE R Precautions: Fall. Standard. WBAT on L LE. Patient Profile/Admitting Diagnosis: Patient is a 73-year-old male with past medical history significant for Diabetes Mellitus and chronic low back pain who has osteoarthritis of left hip S/P anterior total hip arthroplasty on postoperative day 0. PMHX: Medical History Diabetes mellitus (Chronic) Hypertension (Chronic) History of environmental allergies (Acute) BPH (benign prostatic hyperplasia) (Chronic) Surgical History History of back surgery (Acute) History of carpal tunnel release of both wrists (Acute) Social History/Home Situation: Patient lives with in a 2-floor house with 2 steps enter with side posts that he states he could hold onto if needed to get in. He is independent with all aspects of ADLs without the need for an assistive ambulatory device nor adaptive equipment indoors. He uses a 4-4 wheeled walker for outdoors whenever he needs to. 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 Current Functional Limitations: Need for assistance for all transfers and ambulation using a front-wheeled walker Equipment [facility]ed[facility] [place] [place] Subjective: Patient is agreeable to a PT consult and treatment today. He states that his pain has been manageable since this morning. He is hoping that he can go home today. He is agreeable to using a front wheeled walker for now but hopes to eventually go back to using his 4 wheeled walker for outdoor ambulation as soon as he is safe to do so. He states that he has a packet of exercises that he needs to do in order to maximize his mobility level. Objective: General Observation: Patient seen resting in bed. IV in left UE. TEDS on bilateral legs. Agustin catheter in place. Carbon dioxide monitor in place via nasal route. Mepilex Ag on left JOSE R surgical incision. Mental Status: Alert and oriented x4 Pain: 0/10 at rest. 2/10 with mobility activity Vital Signs: Oxygen saturation stayed between 94 to 96% throughout ambulation performance using front wheeled walker. ROM: Right Upper Extremity: Shoulder Flexion WFL. Shoulder abduction WFL. Elbow flexion WFL. Wrist flexion WFL. Functional opening and closing of hand WFL. Left Upper Extremity: Shoulder Flexion WFL. Shoulder abduction WFL. Elbow flexion WFL. Wrist flexion WFL. Functional opening and closing of hand WFL. Right Lower Extremity: Hip flexion WFL. Hip abduction WFL. Knee flexion WFL. Ankle dorsiflexion WFL. Ankle plantarflexion WFL. Left Lower Extremity: Patient is unable to bring the left knee up while seated at edge of bed beyond 90 degrees but was able to do long arc quad without undue discomfort and was able to hold it for 5 to 10 seconds x 5 reps. Hip abduction WFL. Knee flexion WFL. Ankle dorsiflexion WFL. Ankle plantarflexion WFL. Strength: Right Upper Extremity: Shoulder flexors 5/5. Shoulder abductors 5/5. Elbow flexors 5/5. Elbow extensors 5/5. Subcontract Administrator strong. Left Upper Extremity: Shoulder flexors 5/5. Shoulder abductors 5/5. Elbow flexors 5/5. Elbow extensors 5/5. Subcontract Administrator strong. Right Lower Extremity: Hip flexors 5/5. Hip abductors 5/5. Knee flexors 5/5. Knee extensors 5/5. Ankle dorsiflexors 5/5. Ankle plantarflexors 5/5. Left Lower Extremity:Hip flexors 3-/5. Hip abductors 5/5. Knee flexors 4-/5. Knee extensors 4-/5. Ankle dorsiflexors 5/5. Ankle plantarflexors 5/5. Sensation: Intact as to pain and pressure on bilateral lower extremities. Bed Mobility/Transfers: Rolling independent Supine to sit independent Sit to supine independent Sit to stand SBA Stand to sit SBA Bed to chair SBA Chair to bed SBA Gait: Patient was able to tolerate level surface ambulation of up to 100 feet x 3 using front wheeled walker with only SBA of this PT initially starting off with step to gait pattern but then was eventually able to perform step through gait pattern with pain report of 2/10 on the left hip during each mid stance on the left LE. Gait velocity decrease. Step height on the left side. Patient also tolerated up-and-down three 4 inch steps and two 6 inch steps 3 times with SBA while holding onto bilateral rails using step to gait pattern. Balance: Static Sitting: Good Dynamic Sitting: Good Static Standing: Good Dynamic Standing: Fair Special Tests: Mobility Limitations Standardized Measure [facility] AM-PAC 6 clicks Basic Mobility Inpatient Short Form: Raw Score: 22 CMS Score: 21% deficit Informed Consent/Education: Patient instructed in purpose of PT consult and plan of care. Patient was instructed about standing level balance exercises while holding onto walker or to a sturdy area in the house like the kitchen counter or a sturdy furniture working on heel raises, partial knee bends, and high marches with emphasis given on deep breathing exercises in between each set of exercises. Patient was also instructed on safe techniques and negotiating stairs while holding onto bilateral rails. Assessment: Patient is a 73-year-old male with past medical history significant for Diabetes Mellitus and chronic low back pain who has osteoarthritis of left hip S/P anterior total hip arthroplasty on postoperative day 0. Patient presents with clinical signs and symptoms consistent with current/admitting diagnoses that have resulted to mobility limitations, gait instability, generalized weakness, and impairment of motor control as demonstrated by the following impairment level findings: 1. Decreased strength to hip major muscle groups 2. Impaired standing balance 3. Impaired activity tolerance 4. Limitation of joint range of motion in L hip Impairments are contributing to the following functional limitations: 1. Inability to safely ambulate without assistive device and physical assistance 2. Increase completion time for mobility ADL performance 3. Increased fall risk 4. Inability to negotiate steps alone safely Patient is assessed as a 66386 moderate complexity based on the following: History: Cognitively intact 73-year-old male with past medical history significant for Diabetes Mellitus and chronic low back pain who has osteoarthritis of left hip S/P anterior total hip arthroplasty on postoperative day 0. Examination: Demonstrable impairment in strength, balance, and range of motion with underlying impairments and functional limitations as documented above Presentation:Evolving Decision Makin moderate complexity DISCHARGE RECOMMENDATIONS: Patient goes home today and will need a front wheeled walker to reduce fall risk at discharge destination. senior manager mmcoe updated. Marcello huerta that may be him ay benefit from skilled physical therapy services according to orthopedic surgeon timeline recommendations. Patient will be educated and trained on home exercise program per JOSE R exercise protocol in preparation for outpatient physical therapy services. TREATMENT CODE/TIME: 33752 x 30 minutes, 26011 x 15 minutes, 83007 x 12 minutes beginning at 9:36 AM. Thank you very much for this referral. Erica Dutta PT, DPT, [facility]
[2019-04-03] MEDS: Ketorolac 15 MG/ML VIAL IVP (10:36)
[2019-04-03] MEDS: Acetaminophen 500 MG TAB 1000 MG PO (10:36)
--- NOTE | 2019-04-03 11:55 | PDOC.CMIN ---
- If Service Date Differs Date of service: 04/03/19 Time of Service: 11:55 Care Management Initial Assess REASON FOR HOSPITALIZATION:: Osteoarthritis of left hip, total left hip 04/02/19 PAST MEDICAL HISTORY/PAST SURGICAL HISTORY:: DM, HTN, BPH PREVIOUS FUNCTIONAL STATUS/SOCIAL/FAMILY SUPPORTS:: Ken is a 73 year old male that lives with his spouse [place] [address]. He has one daughter that lives in [place]. 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 He started going to [place] last year and will continue with this practice for the . He does not have a pcp in [place] however follows up regually with . Ken is independent with ADL's transporation and meals. CURRENT FUNCTIONAL STATUS:: Ken is sitting up in the chair he is engaged, makes a lot of jokes during assessment. He states he is feeling well, minimal pain while sitting. Anticipate he will be discharged home today. He will have his spouse and daughter to assist him at home. ADVANCE DIRECTIVES:: None on file - He will take the forms home with him. Has patient been provided with information about the portal?: Yes Did the patient sign up for the portal?: No CODE STATUS:: Full Code INSURANCE COVERAGE / FINANCIAL ISSUES:: Medicare CURRENT HOME/COMMUNITY SERVICES/EQUIPMENT:: None PRIMARY CARE PHYSICIAN:: POTENTIAL DISCHARGE NEEDS:: FWW, follow up scheduled with PATIENT/FAMILY EDUCATION NEEDS:: Discharge education, limitations and follow up plan of care including ask me three ANTICIPATED BARRIERS TO DISCHARGE:: None TRANSPORTATION:: Via private car with spouse PLAN:: Ken will be discharged home when medically ready per provider. CM coordianted a FWW through [facility], CM reviewed options for DME and [facility] was Pt choice. No other services at this time PT eval the patient and provided instruction.
--- NOTE | 2019-04-03 12:08 | INITIAL_ITS ---
- If Service Date Differs Date of service: 04/03/19 Time of Service: 11:55 Care Management Initial Assess REASON FOR HOSPITALIZATION:: Osteoarthritis of left hip, total left hip 04/02/19 PAST MEDICAL HISTORY/PAST SURGICAL HISTORY:: DM, HTN, BPH PREVIOUS FUNCTIONAL STATUS/SOCIAL/FAMILY SUPPORTS:: Ken is a 73 year old male that lives with his spouse [place] [address]. He has one daughter that lives in [place]. 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 He started going to [place] last year and will continue with this practice for the . He does not have a pcp in [place] however follows up regually with . Ken is independent with ADL's transporation and meals. CURRENT FUNCTIONAL STATUS:: Ken is sitting up in the chair he is engaged, makes a lot of jokes during assessment. He states he is feeling well, minimal pain while sitting. Anticipate he will be discharged home today. He will have his spouse and daughter to assist him at home. ADVANCE DIRECTIVES:: None on file - He will take the forms home with him. Has patient been provided with information about the portal?: Yes Did the patient sign up for the portal?: No CODE STATUS:: Full Code INSURANCE COVERAGE / FINANCIAL ISSUES:: Medicare CURRENT HOME/COMMUNITY SERVICES/EQUIPMENT:: None PRIMARY CARE PHYSICIAN:: POTENTIAL DISCHARGE NEEDS:: FWW, follow up scheduled with PATIENT/FAMILY EDUCATION NEEDS:: Discharge education, limitations and follow up plan of care including ask me three ANTICIPATED BARRIERS TO DISCHARGE:: None TRANSPORTATION:: Via private car with spouse PLAN:: Ken will be discharged home when medically ready per provider. CM coordianted a FWW through [facility], CM reviewed options for DME and [facility] was Pt choice. No other services at this time PT eval the patient and provided instruction.
--- NOTE | 2019-04-03 12:50 | W.PM.DS.N ---
Date of service: 04/03/19 Time of Service: 12:50 DS: Diagnosis Discharge Diagnosis (1) Osteoarthritis of left hip: Status: Chronic Discharge Plan Disposition Patient Disposition: HOME Condition: Good Discharge Details Reason For Visit: (L) HIP DJD Admit Date/Time: 04/02/19 10:55 Admit Provider: South Wilcox Attending Provider: South Wilcox Primary Care Provider: Amanda Person Hospital Course Hospital Course: Patient was admitted to the medical/surgical floor following the procedure. It was tolerated well without any notable medical, surgical, or anesthetic complications. Mobilization began postoperatively. The floyd catheter was removed and voiding spontaneously. Vitals were stable. Physical therapy worked with the patient and was cleared for discharge home. No acute medical issues. Home Meds and New Rx's Prescriptions: New celecoxib 200 mg capsule 200 mg PO BID PRN (Reason: pain) Qty: 60 RF: 1 aspirin 81 mg tablet,delayed release (DR/EC) 81 mg PO BID Qty: 60 RF: 0 acetaminophen 500 mg tablet 1,000 mg PO Q8H PRN (Reason: pain) Qty: 90 RF: 3 pantoprazole 40 mg tablet,delayed release (DR/EC) 40 mg PO DAILY Qty: 30 RF: 0 oxycodone 5 mg tablet 5 mg PO Q4H Qty: 15 RF: 0 Continued metformin 500 mg tablet 500 mg PO BID RF: 0 lisinopril-hydrochlorothiazide 20-12.5 mg Tablet 1 tab PO DAILY RF: 0 levocetirizine 5 mg Tablet 5 mg PO DAILY RF: 0 acetaminophen [Tylenol] 325 mg Capsule 650 mg PO Q4H PRNRF: 0 verapamil [Calan SR] 240 MG tablet extended release 240 mg PO HS RF: 0 fluticasone propionate 16 GM spray,suspension 16 gm NS DAILY PRNRF: 0 atenolol 50 MG tablet 50 mg PO DAILY RF: 0 finasteride 5 MG tablet 5 mg PO DAILY RF: 0 cyclobenzaprine 10 MG tablet 10 mg PO Q8H PRN (Reason: Muscle Spasm) Qty: 9 RF: 0 Discharge Instructions Additional Instructions: Dr. Wilcox?s Total Hip Discharge Instructions Activity: The most important activity is to walk. You should try to take short walks a few times a day. You have no restrictions on movement or positioning, but do not try to force what you do. You will find some stiffness and weakness with hip flexion (lifting your knee). Do not try to strengthen this too early, continue to practice walking and stairs and this will come. - Outpatient physical therapy can be helpful to help return you to a normal gait and improve your flexibility and strength. This can start around 2 weeks. For some patients, it?s not necessary. Usually this is determined at the time of discharge or at the first post-operative visit. - You should wear the KISHA hose on both legs for 4 weeks. Dressing: Keep the surgical dressing in place for at least one week. After the first week it may be removed and replace with light gauze and tape or nothing. It may get wet after 3 days but avoid soaking the dressing. If it gets wet, just lightly pat dry. It is important to always keep some gauze between skin folds, especially when you are sitting. Spend some time with the wound exposed when you are lying flat as the incision does wrinkle onto itself. Medications: - You should take Tylenol and an anti-inflammatory Celebrex as your primary pain control medications - You have been prescribed a stronger pain medication Oxycodone for breakthrough pain, take as needed as prescribed. - You have also been prescribed a stomach acid reduction agent Pantoprozole to help reduce stomach acid and reflux. - You will be taking Aspirin 81mg twice a day for DVT prevention unless instructed otherwise. - If you have constipation you should take Colace or Miralax (both [id number]). It takes most people 3-4 days to have a bowel movement. Follow-up: 2 weeks Stand Alone Forms: Nursing Discharge Form Referrals: South Wilcox MD [ [facility] STAFF PHYSICIAN] - Activity:: Activity as Tolerated Equipment/Supplies:: Walker Diet:: As Tolerated Discharge Orders Discharge Orders: Discharge Order (Routine); Ordered 04/03/19 Ordered By: South Wilcox DS: Data Vitals/I&O Vitals and I&O: Vital Signs Temperature 36.5 C 04/03/19 11:00 Temperature Source Tympanic 04/03/19 11:00 Pulse 79 04/03/19 11:00 Pulse Rhythm Regular 04/03/19 08:16 Respiratory Rate 18 04/03/19 11:00 Respiratory Effort Non-Labored 04/03/19 08:16 Respiratory Depth Normal 04/03/19 08:16 Respiratory Pattern Normal 04/03/19 08:16 Blood Pressure 102/61 04/03/19 11:00 Pulse Oximetry 96 04/03/19 11:00 Respiratory End-tidal CO2 45 04/02/19 16:39 Oxygen Delivery Method Room Air 04/03/19 11:00 Oxygen Flow Rate 0 04/03/19 11:00 Pain Level 1 04/03/19 11:00 Intake & Output 04/02/19 04/03/19 04/03/19 23:59 11:59 23:59 Intake Total 2620 / 2620 2471.333 / 2471.333 Output Total 1625 / 1625 280 / 280 Balance 995 / 995 2191.333 / 2191.333 Intake: IV 2620 / 2620 1911.333 / 1911.333 Oral 560 / 560 Output: Urine 425 / 425 280 / 280 Estimated Blood Loss 1200 / 1200 Other: Urine Color Light Chyna Dark Chyna Urine Appearance Clear Clear Emesis Description None Labs on day of discharge: Labs from last 24 hours 04/03/19 04/03/19 06:15 06:15 WBC 14.91 H RBC 4.17 L Hgb 13.3 L Hct 37.5 L MCV 89.9 MCH 31.9 MCHC 35.5 RDW 13.2 Plt Count 244 MPV 11.1 H Sodium 139 Potassium 3.6 Chloride 102 Carbon Dioxide 26.9 Anion Gap 10.1 BUN 16 Creatinine 1.18 Estimated GFR/1.73 m2 >= 60.00 Glucose 179 H Calcium 8.8 PFSH Medical History Diabetes mellitus (Chronic) Hypertension (Chronic) History of environmental allergies (Acute) BPH (benign prostatic hyperplasia) (Chronic) Surgical History Hx of vasectomy (Acute) History of back surgery (Acute) History of carpal tunnel release of both wrists (Acute) Family History Father Heart disease Other Cancer Social History Smoking/Tobacco Use Status: Never Drug use: Never Do you feel safe in your relationship?: Yes
--- NOTE | 2019-04-03 14:20 | CHAPLAIN ---
Ken was sitting up in his chair when I stopped in. He was pleasant and easily engaged in conversation. This is his first time in a hospital, other than for blood tests. He grew up in [facility], but now lives on [address] [address]. His surgery went well he said and he expects to be going home soon.
== END 2019-04-03 14:57 | disposition home or self-care (01) | DRG 470 ==
LOC: PDS 10:55 → MS 17:15
PROVIDERS: Admitting Provider Student in an Organized Health Care Education/Training Program; PCP Family Medicine; Visit Provider Student in an Organized Health Care Education/Training Program
PROC: 0SRB04A Replacement of Left Hip Joint with Ceramic on Polyethylene Synthetic Substitute, Uncemented, Open Approach (ICD-10-PCS; CPT 27130; principal; 2019-04-02 12:15)
DX: M16.12 Unilateral primary osteoarthritis, left hip (principal); Z96.642 Presence of left artificial hip joint; E11.9 Type 2 diabetes mellitus without complications; I10 Essential (primary) hypertension; N40.0 Benign prostatic hyperplasia without lower urinary tract symptoms
CPT/HCPCS: 27130; 36415; 80048; 85027; 97110; 97162; 97530; NC; 72170; 73501; J0131; J0690; J1100; J1885; J2250; J2405; J3010; J7613

== ENCOUNTER 2019-04-17 10:47 | Outpatient (CLI) | payer OTHER, SELFPAY ==
--- NOTE | 2019-04-17 08:00 | DI.RAD_ITS ---
SYMPTOM/DIAGNOSIS: POST OP LT JOSE R LEFT HIP: Frontal and lateral views. Comparison is 02/25/19 and 04/02/19 The patient has a left total hip replacement. No lucencies are seen in or about the orthopaedic hardware to suggest loosening or infection. There are moderate degenerative changes seen in the lower lumbar spine. There are mild degenerative changes seen in the right hip. The soft tissues are unremarkable. IMPRESSION: Stable left THR.
== END 2019-04-17 11:07 ==
PROVIDERS: PCP Family Medicine; Referring Provider Family Medicine; Visit Provider Student in an Organized Health Care Education/Training Program
DX: Z96.642 Presence of left artificial hip joint (principal); Z47.1 Aftercare following joint replacement surgery; M16.11 Unilateral primary osteoarthritis, right hip; E11.9 Type 2 diabetes mellitus without complications; Z79.84 Long term (current) use of oral hypoglycemic drugs
CPT/HCPCS: 73502

== ENCOUNTER 2019-04-30 10:14 | Outpatient (CLI) | payer OTHER, SELFPAY ==
[2019-05-01 09:59] LABS: PSA, Diagnostic 3.4 ng/ml (0-6.5)
== END 2019-04-30 10:34 ==
PROVIDERS: PCP Family Medicine; Visit Provider Urology
DX: R97.20 Elevated prostate specific antigen [PSA] (principal); N40.1 Benign prostatic hyperplasia with lower urinary tract symptoms; N13.8 Other obstructive and reflux uropathy
CPT/HCPCS: 36415; 84153

== ENCOUNTER → 2019-05-15 13:38 | Outpatient (BNVA) | payer OTHER, SELFPAY | PROVIDERS: PCP Family Medicine; Referring Provider Family Medicine; Visit Provider Student in an Organized Health Care Education/Training Program | DX: Z47.1 Aftercare following joint replacement surgery (principal); Z96.642 Presence of left artificial hip joint; E11.9 Type 2 diabetes mellitus without complications; I10 Essential (primary) hypertension; Z79.84 Long term (current) use of oral hypoglycemic drugs ==

== ENCOUNTER → 2019-06-27 08:06 | Outpatient (BNVA) | payer OTHER, SELFPAY | PROVIDERS: PCP Family Medicine; Referring Provider Family Medicine; Visit Provider Student in an Organized Health Care Education/Training Program | DX: Z47.1 Aftercare following joint replacement surgery (principal); Z96.642 Presence of left artificial hip joint; I10 Essential (primary) hypertension; E11.9 Type 2 diabetes mellitus without complications; Z79.84 Long term (current) use of oral hypoglycemic drugs ==

== ENCOUNTER 2020-04-09 09:01 | Outpatient (CLI) | payer OTHER, SELFPAY ==
--- NOTE | 2020-04-09 07:45 | DI.RAD_ITS ---
EXAM: XR HIP LT AP LAT ONLY CLINICAL HISTORY: annual f/u TECHNIQUE: COMPARISON: CR XR hip LT complete AP pelvis from 04/17/2019 FINDINGS: Two views were obtained. There is a total hip joint replacement in position. The components appear well seated. No other significant bony abnormality seen. IMPRESSION:
== END 2020-04-09 09:21 ==
PROVIDERS: PCP Family Medicine; Referring Provider Family Medicine; Visit Provider Student in an Organized Health Care Education/Training Program
DX: Z96.642 Presence of left artificial hip joint (principal); Z47.1 Aftercare following joint replacement surgery; M25.552 Pain in left hip; E11.9 Type 2 diabetes mellitus without complications; I10 Essential (primary) hypertension; Z79.84 Long term (current) use of oral hypoglycemic drugs
CPT/HCPCS: 99213; 73502

== ENCOUNTER 2020-05-01 01:57 | Outpatient (CLI) | payer OTHER, SELFPAY ==
[2020-05-04 09:22] LABS: PSA, Diagnostic 2.2 ng/mL (0.0-6.5)
== END 2020-05-01 02:17 ==
PROVIDERS: PCP Family Medicine; Visit Provider Urology
DX: R97.20 Elevated prostate specific antigen [PSA] (principal)
CPT/HCPCS: 36415; 84153

== ENCOUNTER 2020-05-27 09:54 | Outpatient (REF) | payer OTHER, SELFPAY ==
[2020-05-27 22:05] LABS: Hemoglobin A1C 6.2 % (<5.7)
[2020-05-27 22:22] LABS: ALT 21 U/L (16-63); AST 18 U/L (15-37); Alkaline Phosphatase 93 U/L (46-116); Anion Gap 9.2 mmol/L (3-11); BUN 12 mg/dL (7-18); Bilirubin, Total 0.6 mg/dL (0.2-1.0); CO2 29.8 mmol/L (21.0-32.0); CREATININE 1.06 mg/dL (0.70-1.30); Calcium 9.8 mg/dL (8.5-10.1); Calculated LDL 106 mg/dL (<100); Chloride 106 mmol/L (98-107); Cholesterol 172 mg/dL (<200); Glucose 137 mg/dL (74-106); HDL Cholesterol 38 mg/dL (40-60); Potassium 4.4 mmol/L (3.5-5.1); Sodium 145 mmol/L (136-145); Total Protein 7.3 g/dL (6.4-8.2); Triglyceride 140 mg/dL (<150)
== END 2020-05-27 10:14 ==
LOC: NCHCN 09:54
PROVIDERS: PCP Family Medicine; Visit Provider Family Medicine
DX: E11.9 Type 2 diabetes mellitus without complications (principal); I10 Essential (primary) hypertension; E66.01 Morbid (severe) obesity due to excess calories
CPT/HCPCS: 80053; 80061; 83036

== ENCOUNTER 2020-06-18 11:15 | Outpatient (REF) | payer OTHER, SELFPAY ==
--- NOTE | 2020-06-18 11:00 | SKI_PTH ---
PATIENT: Ken Arreguin LOC: [facility] U#:[id number] AGE/SX: 74/M ROOM: RE06/18/[address]: Amanda Person : 1945 BED: DIS: 06/18/2020 SPEC #: [id number] RECD: 06/19/20 12:20 STATUS: DEJUAN REJordyn #: [id number] ANIL: 06/18/20 11:[address]: Amanda Person DEPT: Surgical Specimen RECD BY: Felicity Carrillo Tissues: 1 - SKIN BIOPSY(SHAVE/PUNCH) Procedures: SKIN LEVEL 4 Comments: [id number]
== END 2020-06-18 11:35 ==
LOC: NCHCN 11:15
PROVIDERS: PCP Family Medicine; Visit Provider Family Medicine
DX: L82.1 Other seborrheic keratosis (principal)
CPT/HCPCS: 88305

== ENCOUNTER 2021-03-22 11:26 | Outpatient (CLI) | payer OTHER, SELFPAY ==
--- NOTE | 2021-03-22 10:30 | DI.RAD_ITS ---
Exam(s) XR HIP RT COMPLETE AP PELVIS EXAM: XR HIP RT COMPLETE AP PELVIS CLINICAL HISTORY: right hip pain. TECHNIQUE: 2D digital imaging was performed. COMPARISON: CR XR pelvis AP from 04/02/2019 CR XR pelvis AP from 04/02/2019 CR XR HIP LT AP LAT ONLY from 04/09/2020 FINDINGS: Again noted is a left hip prosthesis. Moderate osteoarthritic degenerative changes are noted in the right hip, similar appearance to March 2019. There is significant joint space narrowing which appears unchanged. Bone density is normal. There is a benign synovial pit in the right femoral neck which is unchanged. Small calcification off the superolateral aspect of the acetabulum is also unchanged. IMPRESSION: Moderate-advanced degenerative narrowing of the right hip joint space, exhibiting minimal if any sign ificant change compared to March 2019. Left hip prosthesis again noted which appears satisfactory. DATA REPOSITORY: RADIATION DOSE DELIVERED:
== END 2021-03-22 11:27 | disposition home or self-care (01) ==
LOC: DIORS 11:26
PROVIDERS: PCP Family Medicine; Referring Provider Family Medicine; Visit Provider Student in an Organized Health Care Education/Training Program
DX: M16.11 Unilateral primary osteoarthritis, right hip (principal); M70.61 Trochanteric bursitis, right hip; M25.552 Pain in left hip; M25.551 Pain in right hip
CPT/HCPCS: 99215; 73502

== ENCOUNTER → 2022-04-29 09:50 | Outpatient (BNVA) | payer OTHER, SELFPAY | PROVIDERS: PCP Family Medicine; Referring Provider Family Medicine; Visit Provider Physical Therapy Assistant | DX: Z86.010 Personal history of colon polyps (principal); Z12.11 Encounter for screening for malignant neoplasm of colon ==

== ENCOUNTER 2022-05-09 08:11 | Day surgery (SDC) | payer MEDICARE, SELFPAY ==
--- NOTE | 2022-05-09 06:19 | COLE_ITS ---
Colonoscopy Report Date of procedure: 05/09/22 Pre-op diagnosis general: Colon Cancer Screening and hx of polyps Post-op diagnosis procedure note: same (polyps and diverticulosis) Procedure: Colonoscopy with polyepctomy Surgeon: Niya Galvan Anesthesia Type: General:No Airway Estimated blood loss (mL): 3 Pathology: other (sigmoid polyps x2) Complications: None Disposition: same day Indications: The patient is here for Colonoscopy pre-op.?His last screening in 2014 and was remarkable for adenomatous polyps.??He has no family history of colon cancer. He has not had any bowel habit changes. -Discussed colonoscopy bowel prep as well as the procedure. Discussed possible complications of the procedure to include bleeding, pain, perforation, missed small lesion/polyp, sore throat, aspiration and adverse reaction to the medications. Questions were answered to patient?s satisfaction. No guarantees were implied or given.? Prep: Miralax/Dulcolax Procedure Start Time: 09:55 Procedure End Time: 10:24 Retraction Time: 16 minutes Findings: 2 small polyps and mild diverticulosis Procedure Description: After informed consent was obtained the patient was taken to the procedure room and placed in a left decubitous position. Monitors were applied and a time out was done. The patients name, date of , procedure, allergies to medications and metal in their body was reviewed. The patient was then sedated. Once sedated and comfortable a rectal exam was done. External exam was normal. Internal exam revealed a normal sphincter tone and no palpable masses. The prostate felt smooth and slightly enlarged. The scope was then introduced and retro-flexed. No internal hemorrhoids, polyps or masses were identified on retro-flexion. The scope was then advanced to the cecum without difficulty. The ileocecal vlave and appendiceal orifice were i dentified. The prep was adequate. The scope was then slowly retracted over 14 minutes back into the rectum. Polyps were removed with cold forceps in the sigmoid colon x2. There was mild diverticulosis noted. The scope was removed and the patient was woken up and taken back to Same day surgery in stable condition. The patient tolerated the procedure well and there were no immediate complicatio ns.
--- NOTE | 2022-05-09 06:21 | PDOC.DSDIS_ITS ---
Discharge Plan Disposition Patient Disposition: HOME Condition: Good Discharge Details Reason For Visit: colonoscopy Attending Provider: Niya Galvan Primary Care Provider: Amanda Person Home Meds and New Rx's Prescriptions: Continued glipizide 10 mg tablet 10 mg PO BID Jardiance 10 mg tablet 10 mg PO DAILY aspirin [Adult Aspirin Regimen] 81 mg tablet,delayed release (DR/EC) 81 mg PO DAILY ibuprofen [Advil] 200 mg tablet 400 mg PO Q6H PRN lisinopril-hydrochlorothiazide 20-12.5 mg Tablet 1 tab PO DAILY levocetirizine 5 mg Tablet 5 mg PO DAILY acetaminophen [Tylenol] 325 mg Capsule 650 mg PO Q4H PRN verapamil [Calan SR] 240 MG tablet extended release 240 mg PO HS atenolol 50 MG tablet 50 mg PO DAILY finasteride 5 MG tablet 5 mg PO DAILY Discontinued bisacodyl [Dulcolax (bisacodyl)] 5 mg tablet,delayed release (DR/EC) 5 mg PO ONCE Qty: 4 0RF Rx Instructions: Take according to provider's instructions for colonoscopy prep. polyethylene glycol 3350 17 gram/dose powder 17 g PO ONCE Qty: 238 0RF Rx Instructions: To be taken as directed by prescriber's office for colonoscopy prep. Discharge Instructions Instructions: Diverticulosis (DC) Additional Instructions: Findings: Diverticulosis and 2 small polyps Follow up: depends on final pathology results Please call if you develop: fevers >101.5 Nausea or Vomiting Abdominal pain that is not transient Rectal bleeding that is more then a tbsp A hard abdomen and inability to pass gas DAY SURGERY UNIT POST ENDOSCOPY INSTRUCTIONS Instructions for everyone who is given Anesthesia: For your safety, please do the following for the next 24 Hours: a. Do not drive or operate dangerous equipment b. Do not drink alcohol beverages or use any recreational drugs for the first 24 hours or while taking pain medications. The medications in your body may have a reaction that can be dangerous. c. Do not make any important decisions or sign any important papers 1. Generally there are no restrictions on your activity after a day or so has gone by, but you may feel a bit fatigued for a few days. 2. After you arrive home you may have a light meal and return to a normal diet a s you can tolerate it without feeling sick to your stomach. 3. After surgery, you may feel pain or discomfort. This should be only transient, but if it persists please contact your doctor. 4. If there are any questions regarding the findings of your procedure, please feel free to contact your doctor. 6. If you are unable to contact your doctor with a problem, contact the hospital at [phone]. 7. Continue all your regular medications unless directed otherwise. I understand the above instructions and have no questions. Signature of Patient or Responsible Adult Escort Date/Time Name of Responsible Adult Escort Signature of Nurse Date/Time Activity:: Activity as Tolerated Diet:: high fiber diet Discharge Orders Discharge Orders: Discharge Order (Routine); Ordered 05/09/22 Ordered By: Niya Galvna
[2022-05-09 08:30] VITALS: BP 132/82; PULSE 68; RESP 17; TEMP 36.7; O2SAT 99
[2022-05-09] MEDS: Lactated Ringers 1,000 ML 80 ML IV (09:05)
--- NOTE | 2022-05-09 09:37 | W.ANESPRE ---
General Info Date of Service Date Performed: 05/09/22 Height: 6 ft Weight: 111.6 kg Body Mass Index (BMI): 33.3 Surgical Procedure: Operation Date: 05/09/22 11:05 Proposed Procedure Side Surgeon p Colonoscopy Niya Galvan MD Meds Allergies and Home Medications Allergies Allergy/AdvReac Type Severity Reaction Status Date / Time garlic AdvReac sinus Verified 05/09/22 08:45 congestion and headache Home Medication Medication Instructions Recorded atenolol 50 mg tablet 50 mg PO DAILY 02/21/18 finasteride 5 mg tablet 5 mg PO DAILY 02/21/18 verapamil 240 mg tablet,extended 240 mg PO HS 02/21/18 release (Calan SR) levocetirizine 5 mg tablet 5 mg PO DAILY 03/21/19 lisinopril 20 1 tab PO DAILY 03/21/19 mg-hydrochlorothiazide 12.5 mg tablet acetaminophen 325 mg capsule 650 mg PO Q4H PRN 04/02/19 (Tylenol) aspirin 81 mg tablet,delayed 81 mg PO DAILY 04/22/22 release (Adult Aspirin Regimen) empagliflozin 10 mg tablet 10 mg PO DAILY 04/22/22 (Jardiance) ibuprofen 200 mg tablet (Advil) 400 mg PO Q6H PRN 04/22/22 bisacodyl 5 mg tablet,delayed 5 mg PO ONCE #4 tabs 04/29/22 release (Dulcolax (bisacodyl)) glipizide 10 mg tablet 10 mg PO BID 04/29/22 polyethylene glycol 3350 17 17 g PO ONCE #238 grams 04/29/22 gram/dose oral powder Current Visit Medications: Current Medications Generic Name Dose Route Start Last Admin Trade Name Freq PRN Reason Stop Dose Admin Hyoscyamine Sulfate 0.125 mg 05/09/22 06:21 Hyoscyamine 0.125 Mg Sl/Oral/Chew SL DIRECTED PRN Ringer's Solution 1,000 mls @ 80 mls/hr 05/09/22 06:00 05/09/22 09:05 IV 06/05/22 23:59 80 mls/hr INFUSION JENN Administration IV Miscellaneous Supplies 1 each 05/09/22 06:00 Iv Access IV 06/05/22 23:59 DIRECTED JENN Ondansetron HCl 4 mg 05/09/22 06:21 Ondansetron 4 Mg/2 Ml Vial IVP Q4H PRN PRN Nausea / Vomiting Sodium Chloride 0 ml 05/09/22 06:00 Normal Saline Flush 10 Ml Syr IV 06/05/22 23:59 PRN PRN Sodium Chloride 0 ml 05/09/22 06:00 Normal Saline 10 Ml Vial IJ 06/05/22 23:59 DIRECTED PRN Sterile Water 0 ml 05/09/22 06:00 Water,Injection,Sterile 10 Ml Vial IJ 06/05/22 23:59 DIRECTED PRN PFSH Active Problems Active Problems: Problem Status Onset Code Diabetes mellitus E11.9 Morbid obesity E66.01 Screening for colon cancer Z12.11 Medical History Medical History BPH (benign prostatic hyperplasia) History of environmental allergies Hypertension Lumbar spondylosis Primary osteoarthritis of right hip (04/09/18) Trochanteric bursitis, right hip (04/09/18) Surgical History Surgical History History of back surgery X2 History of carpal tunnel release of both wrists History of total left hip replacement (04/02/19) Dr. Wilcox Hx of vasectomy S/P total left hip arthroplasty Tobacco Smoking/Tobacco Use Status: Never Alcohol Alcohol Intake: never Substance Use Substance use: Never Substance use type: does not use Vital Signs and Lab Results Vital Signs Most Recent Vital Signs in EMR: Most Recent Vital Signs Temp Pulse Resp BP Pulse Ox 36.7 C 68 17 132/82 99 05/09/22 08:30 05/09/22 08:30 05/09/22 08:30 05/09/22 08:30 05/09/22 08:30 Point of Care Results Point of Care Results: Finger Stick Blood Glucose 108 05/09/22 08:43 Lab Results Blood Type / Crossmatch: No Data to Display Complete Blood Count: No Data to Display Complete Metabolic Panel: No Data to Display Liver Function Panel: No Data to Display Coagulation Panel: No Data to Display Cardiac Panel: No Data to Display Arterial Blood Gas: No Data to Display Venous Blood Gas: No Data to Display Pancreas Panel: No Data to Display Thyroid Panel: No Data to Display Infectious Disease: No Data to Display Blood Cultures: No Data to Display Toxicology Panel: No Data to Display Anesthesia Assessment and Plan Anesthesia History Personal History: No History of Anesthesia Complications Family History: No Family History of Anesthesia Complications Exercise Tolerance Exercise Tolerance: Metabolic Equivalents>4 Pertinent Negatives Pertinent Negatives: No Symptoms of GERD, No Major Cardiovascular Symptoms or Complaints, No Major Pulmonary Symptoms or Complaints and No History of CVA/TIA Cardiac & Pulmonary Exam Cardiac Exam: Normal S1/S2 Heart Sounds Pulmonary Exam: Clear Bilateral Breath Sounds Implantable Cardiac Device Does patient have a Pacemaker or an ICD?: No Airway Exam Known Difficult Airway: No Mallampati Class: 3 Mouth Opening: Normal (> 3cm) Thyromental Distance: Greater than 3 cm Neck Range of Motion: Full ROM Neck Circumference: Thick Teeth Condition: Normal Dentition ASA Classification ASA Score: ASA 2 Emergency Case?: No NPO Status NPO Status: NPO Clears >2 hours, Solids >8 hours Anesthesia Plan Resuscitation Status: Full Code Anesthesia Technique: General Anesthesia Airway Planned: Natural Airway Monitors Used: Standard Monitors
[2022-05-09 09:39] VITALS: BMI 33.3
--- NOTE | 2022-05-09 10:22 | BOWEL_PTH ---
PATIENT: Ken Arreguin LOC: [facility] U#:[id number] AGE/SX: 76/M ROOM: RE05/09/[address]: Niya Galvan MD : 1945 BED: DIS: 05/09/2022 SPEC #: [id number] RECD: 05/09/22 10:50 STATUS: DEJUAN REQ #: [id number] ANIL: 05/09/22 10:[address]: Niya Galvan DEPT: Surgical Specimen RECD BY: Jessica Hunt ENTERED: 05/09/22 10:52 SP TYPE: Bowel OTHR DR: Amanda Person Tissues: 1 - BIOPSY BOWEL Procedures: GROSS AND MICRO LEVEL 4 Comments: [id number]
--- NOTE | 2022-05-09 10:32 | W.ANESPOSTOP ---
Postoperative Evaluation Date, Time and Location Date Performed: 05/09/22 Time Performed: 10:33 Patient Location: Day Surgery Unit Vital Signs Most Recent Imported Vital Signs: Most Recent Vital Signs Temp Pulse Resp BP Pulse Ox 36.7 C 68 17 132/82 99 05/09/22 08:30 05/09/22 08:30 05/09/22 08:30 05/09/22 08:30 05/09/22 08:30 Most Recent Manually Entered Vital Signs: Adult Blood Pressure: 111/68 Heart Rate: 72 Respirations: 12 Oxygen Saturation (%): 97 Temperature (C): 36.3 C Pain Score (0-10 Scale): 0 Pain Score Most Recent Pain Score: Most Recent Pain Score Pain Level 0 05/09/22 08:30 Assessment Mental Status: Awake (Alert & Oriented to Patient Baseline) Airway and Respiratory Function: Patent airway with normal (patient baseline) respiratory exam Cardiovascular Function: Hemodynamically Stable Hydration Status: Adequately Hydrated Nausea & Vomiting: No Nausea or Vomiting Pain: Pt. Denies Any Pain Peripheral Nerve Block: Patient did not receive a nerve block
[2022-05-09 10:33] VITALS: BP 111/68; PULSE 64; RESP 26; TEMP 36.2; O2SAT 95
[2022-05-09 10:36] VITALS: BP 111/68; PULSE 72; RESP 12; TEMPC 36.3; O2SAT 97
--- NOTE | 2022-05-09 11:14 | W.ANESPOSTOP ---
Postoperative Evaluation Date, Time and Location Date Performed: 05/09/22 Time Performed: 11:14 Patient Location: Day Surgery Unit Vital Signs Most Recent Imported Vital Signs: Most Recent Vital Signs Temp Pulse Resp BP Pulse Ox 36.2 C L 64 26 H 111/68 95 05/09/22 10:33 05/09/22 10:33 05/09/22 10:33 05/09/22 10:33 05/09/22 10:33 Most Recent Vital Signs Temp Pulse Resp BP Pulse Ox 36.7 C 68 17 132/82 99 05/09/22 08:30 05/09/22 08:30 05/09/22 08:30 05/09/22 08:30 05/09/22 08:30 Most Recent Manually Entered Vital Signs: Adult Blood Pressure: 137/86 Heart Rate: 87 Respirations: 10 Oxygen Saturation (%): 97 Temperature (C): 36.3 C Pain Score (0-10 Scale): 0 Pain Score Most Recent Pain Score: Most Recent Pain Score Pain Level 0 05/09/22 10:33 Assessment Mental Status: Awake (Alert & Oriented to Patient Baseline) Airway and Respiratory Function: Patent airway with normal (patient baseline) respiratory exam Cardiovascular Function: Hemodynamically Stable Hydration Status: Adequately Hydrated Nausea & Vomiting: No Nausea or Vomiting Pain: Pt. Denies Any Pain Peripheral Nerve Block: Patient did not receive a nerve block
[2022-05-09 11:15] VITALS: BP 124/89; BP 137/86; PULSE 65; PULSE 87; RESP 10; RESP 20; TEMP 36.6; TEMPC 36.3; O2SAT 97; O2SAT 98
== END 2022-05-09 12:00 | disposition home or self-care (01) ==
PROVIDERS: PCP Family Medicine; Visit Provider Surgery
PROC: 0DJD8ZZ Inspection of Lower Intestinal Tract, Via Natural or Artificial Opening Endoscopic (ICD-10-PCS; CPT 45378; principal; 2022-05-09 11:00)
DX: Z12.11 Encounter for screening for malignant neoplasm of colon (principal); K63.5 Polyp of colon; K57.30 Diverticulosis of large intestine without perforation or abscess without bleeding; Z86.010 Personal history of colon polyps; E11.9 Type 2 diabetes mellitus without complications; E66.01 Morbid (severe) obesity due to excess calories; I10 Essential (primary) hypertension
CPT/HCPCS: 45380; 88305; J2704

== ENCOUNTER 2023-01-30 09:17 | Outpatient (REF) | payer MEDICARE, SELFPAY ==
[2023-01-30 15:20] LABS: Hemoglobin A1C 5.8 % (<5.7)
[2023-01-30 15:29] LABS: ALT 20 U/L (16-63); AST 16 U/L (15-37); Alkaline Phosphatase 89 U/L (46-116); Anion Gap 6.9 mmol/L (3-11); BUN 15 mg/dL (7-18); Bilirubin, Total 0.6 mg/dL (0.2-1.0); CO2 31.1 mmol/L (21.0-32.0); CREATININE 1.2 mg/dL (0.70-1.30); Calcium 9.9 mg/dL (8.5-10.1); Calculated LDL 88 mg/dL (<100); Chloride 106 mmol/L (98-107); Cholesterol 144 mg/dL (<200); Estimated GFR 63.07 (mL/min/1.73m2); Glucose 101 mg/dL (74-106); HDL Cholesterol 44 mg/dL (40-60); Potassium 4.6 mmol/L (3.5-5.1); Sodium 144 mmol/L (136-145); Total Protein 7.4 g/dL (6.4-8.2); Triglyceride 63 mg/dL (<150)
[2023-01-30 16:33] LABS: Vitamin D 25 Total 40.5 ng/mL (30-100)
== END 2023-01-30 09:18 | disposition home or self-care (01) ==
LOC: NCHCN 09:17
PROVIDERS: PCP Family Medicine; Visit Provider Family Medicine
DX: I10 Essential (primary) hypertension (principal); E11.9 Type 2 diabetes mellitus without complications; E66.01 Morbid (severe) obesity due to excess calories
CPT/HCPCS: 80053; 80061; 82306; 83036

== ENCOUNTER 2023-02-06 08:24 | Outpatient (CLI) | payer MEDICARE, SELFPAY ==
--- NOTE | 2023-02-06 08:17 | DI.RAD_ITS ---
Exam(s) XR KNEE RT 3V AP,LAT,YANE EXAM: XR KNEE RT 3V AP,LAT,YANE CLINICAL HISTORY: Right knee pain. TECHNIQUE: 2D digital imaging was performed. Three views. COMPARISON: No exams were available for comparison FINDINGS: BONES: No acute fracture is present. No bony destructive lesion is seen. Small enthesophyte at the t ibial tubercle. JOINTS: The knee is normally aligned. A small joint effusion is seen. Mild narrowing of the medial f emoral tibial joint space and mild periarticular spurring. SOFT TISSUE: Vascular calcifications. Chronic calcification seen posterior to the femoral condyles c ould represent joint space loose bodies. IMPRESSION: Mild degenerative changes. Question of posterior joint space loose bodies. DATA REPOSITORY: RADIATION DOSE DELIVERED:
== END 2023-02-06 08:25 | disposition home or self-care (01) ==
LOC: DIORS 08:24
PROVIDERS: PCP Family Medicine; Referring Provider Family Medicine; Visit Provider Student in an Organized Health Care Education/Training Program
DX: M17.11 Unilateral primary osteoarthritis, right knee (principal)
CPT/HCPCS: 20610; 73562; J1040

== ENCOUNTER 2024-01-24 15:15 | Outpatient (REF) | payer MEDICARE, SELFPAY ==
[2024-01-24 14:34] LABS: Abs Immature Grans 0.03 10^3/uL (0.0-0.06); Absolute Basophil Count 0.08 10^3/uL (0.0-0.2); Absolute Eosinophil Count 0.23 10^3/uL (0.0-0.7); Absolute Lymphocyte Count 2.15 10^3/uL (1.2-3.4); Absolute Neutrophil Count 2.74 10^3/uL (1.2-6.7); Basophils % 1.4 %; HGB 15.6 g/dL (13.5-17.5); Immature Grans % 0.5 %; Lymphocytes % 37.5 %; MCHC 34.7 % (32.0-36.0); MCV 87 fL (80-95); MPV 10.8 fL (8.0-11.0); Monocytes % 8.7 %; Neutrophils % 47.9 %; Platelet Count 233 10^3/uL (130-400); RDW-SD 43.5 fL; WBC 5.73 10^3/uL (4.4-10.8)
[2024-01-24 15:12] LABS: ALT 15 U/L (16-63); AST 23 U/L (15-37); Albumin 4.2 g/dL (3.4-5.0); Alkaline Phosphatase 101 U/L (46-116); Anion Gap 7.4 mmol/L (3-11); BUN 18 mg/dL (7-18); Bilirubin, Total 0.6 mg/dL (0.2-1.0); CO2 30.6 mmol/L (21.0-32.0); CREATININE 1.1 mg/dL (0.70-1.30); Calcium 9.6 mg/dL (8.5-10.1); Chloride 106 mmol/L (98-107); Estimated GFR 69.57 (mL/min/1.73m2); Glucose 94 mg/dL (74-106); Potassium 3.9 mmol/L (3.5-5.1); Sodium 144 mmol/L (136-145); TSH 1.67 uIU/Ml (0.36-3.74); Total Protein 7.2 g/dL (6.4-8.2)
[2024-01-24 16:48] LABS: Vitamin D 25 Total 38.3 ng/mL (30-100)
== END 2024-01-24 15:16 | disposition home or self-care (01) ==
LOC: NCHCN 15:15
PROVIDERS: PCP Family Medicine; Visit Provider Family Medicine
DX: R00.1 Bradycardia, unspecified (principal)
CPT/HCPCS: 80053; 82306; 84443; 85025

== ENCOUNTER 2024-01-25 13:24 | Outpatient (CLI) | payer MEDICARE, SELFPAY | END 2024-01-25 13:25 | disposition home or self-care (01) | PROVIDERS: PCP Family Medicine; Visit Provider Family Medicine | DX: R00.1 Bradycardia, unspecified (principal) | CPT/HCPCS: 93270 ==

== ENCOUNTER 2024-02-26 09:20 | Outpatient (CLI) | payer MEDICARE, SELFPAY ==
--- NOTE | 2024-02-26 15:13 | W.CARDEVENT ---
Date of service: 02/26/24 Time of Service: 15:13 Cardiac Event Recorder Referring Provider:: Amanda Person Indications:: bradycardia Cardiac Event Note: This is a cardiac event monitor. Patient was monitored for 23 days 5 hours Rhythm throughout was sinus with an average heart rate of 62. Minimum was 39, maximum 99 There were no significant atrial or ventricular dysrhythmias. There was no atrial fibrillation, no high-grade AV block, no pauses greater than 3 seconds There were no apparent patient symptoms
== END 2024-02-26 09:21 | disposition home or self-care (01) ==
LOC: CARDOPNVT 09:20
PROVIDERS: PCP Family Medicine; Visit Provider Internal Medicine Cardiovascular Disease
DX: R00.1 Bradycardia, unspecified (principal)
CPT/HCPCS: 93272

== ENCOUNTER 2024-05-30 10:07 | Outpatient (CLI) | payer MEDICARE, SELFPAY ==
--- NOTE | 2024-05-30 10:57 | DI.RAD_ITS ---
Exam(s) XR HIP RT COMPLETE AP PELVIS EXAM: XR HIP RT COMPLETE AP PELVIS CLINICAL HISTORY: M25.551 Pain in rt hip. TECHNIQUE: 2D digital imaging was performed of the right hip. Three images were obtained. AP pelvis and lateral right hip views were obtained. COMPARISON: CR XR HIP RT COMPLETE AP PELVIS from 03/22/2021 FINDINGS: BONES: No acute fracture is present. No bony destructive lesion is seen. JOINTS: No dislocation present. Note is made of a left total hip replacement which is incompletely im aged on this examination. There is moderate to severe narrowing of the superior joint space of the r ight hip. Subchondral sclerosis is seen in the acetabulum. There is again seen a well corticated os seous density adjacent to the right acetabulum. SOFT TISSUE: Normal. IMPRESSION: Moderately severe degenerative changes seen in the right hip. DATA REPOSITORY: RADIATION DOSE DELIVERED:
== END 2024-05-30 10:27 ==
PROVIDERS: PCP Family Medicine; Visit Provider Family Medicine
DX: M16.11 Unilateral primary osteoarthritis, right hip (principal)
CPT/HCPCS: 73502

== ENCOUNTER → 2024-06-24 08:26 | Outpatient (BNVA) | payer MEDICARE, SELFPAY | PROVIDERS: PCP Family Medicine; Referring Provider Family Medicine; Visit Provider Physician Assistant | DX: M16.11 Unilateral primary osteoarthritis, right hip (principal) | CPT/HCPCS: 20611; J1010 ==

== ENCOUNTER 2025-01-17 00:48 | Outpatient (CLI) | payer MEDICARE, BC, SELFPAY ==
[2025-01-17 11:36] LABS: HCT 48.6 % (40.0-50.0); HGB 16.4 g/dL (13.5-17.5); MCH 29.9 pg (27.0-33.0); MCHC 33.7 % (32.0-36.0); MCV 89 fL (80-95); MPV 10.7 fL (8.0-11.0); Platelet Count 233 10^3/uL (130-400); RBC 5.49 10^6/uL (4.36-5.78); RDW 13.9 % (11.8-14.1); RDW-SD 45.1 fL; WBC 7.65 10^3/uL (4.4-10.8)
[2025-01-17 12:23] LABS: Anion Gap 7.6 mmol/L (3-11); BUN 17 mg/dL (7-18); CO2 31.4 mmol/L (21.0-32.0); CREATININE 1.2 mg/dL (0.70-1.30); Calcium 10.3 mg/dL (8.5-10.1); Chloride 105 mmol/L (98-107); Estimated GFR 62.29 (mL/min/1.73m2); Glucose 100 mg/dL (74-106); Potassium 3.8 mmol/L (3.5-5.1); Sodium 144 mmol/L (136-145)
== END 2025-01-17 00:49 | disposition home or self-care (01) ==
PROVIDERS: PCP Family Medicine; Visit Provider Student in an Organized Health Care Education/Training Program
DX: M16.11 Unilateral primary osteoarthritis, right hip (principal); Z01.818 Encounter for other preprocedural examination
CPT/HCPCS: 36415; 80048; 85027; 99024

== ENCOUNTER 2025-01-28 05:54 | Day surgery (SDC) | payer MEDICARE, BC, SELFPAY ==
--- NOTE | 2025-01-27 18:21 | W.ANESPRE ---
General Info Date of Service Date Performed: 01/28/25 Height: 6 ft Weight: 113.086 kg Body Mass Index (BMI): 33.7 Surgical Procedure: Operation Date: 01/28/25 07:50 Proposed Procedure Side Surgeon p Hip Total Hip Anterior Right [place] MD Meds Allergies and Home Medications Allergies Allergy/AdvReac Type Severity Reaction Status Date / Time garlic AdvReac sinus Verified 01/28/25 06:20 congestion and headache Home Medication ?Medication ?Instructions ?Recorded atenolol 50 mg tablet 50 mg PO DAILY 02/21/18 finasteride 5 mg tablet 5 mg PO DAILY 02/21/18 verapamil 240 mg tablet,extended 240 mg PO HS 02/21/18 release (Calan SR) levocetirizine 5 mg tablet 5 mg PO DAILY 03/21/19 lisinopril 20 1 tab PO DAILY 03/21/19 mg-hydrochlorothiazide 12.5 mg tablet acetaminophen 325 mg capsule 650 mg PO Q4H PRN 04/02/19 (Tylenol) aspirin 81 mg tablet,delayed 81 mg PO DAILY 04/22/22 release (Adult Aspirin Regimen) empagliflozin 10 mg tablet 10 mg PO DAILY 04/22/22 (Jardiance) ibuprofen 200 mg tablet (Advil) 400 mg PO Q6H PRN 04/22/22 glipizide 10 mg tablet 5 mg PO BID 01/17/25 Current Visit Medications: Current Medications Generic Name Dose Route Start Last Admin Trade Name Freq PRN Reason Stop Dose Admin Acetaminophen 1,000 mg 01/28/25 06:00 Acetaminophen 500 Mg Tab PO 01/28/25 23:59 PREOP JENN Celecoxib 400 mg 01/28/25 06:00 Celecoxib 200 Mg Cap PO 01/28/25 23:59 PREOP JENN Ringer's Solution 1,000 mls @ 80 mls/hr 01/28/25 06:00 IV 01/28/25 23:59 INFUSION JENN Cefazolin Sodium/Dextrose 2 gm in 50 mls @ 100 mls/hr 01/28/25 06:00 Ancef Duplex IVPB 01/28/25 23:59 PREOP JENN Tranexamic Acid/Sodium Chloride 1,000 mg in 100 mls @ 600 mls/hr 01/28/25 06:00 IVPB 01/28/25 23:59 DIRECTED [facility] IV Miscellaneous Supplies 1 each 01/28/25 06:00 Iv Access IV 01/28/25 23:59 DIRECTED JENN Sodium Chloride 0 ml 01/28/25 06:00 Normal Saline Flush 10 Ml Syr IV 01/28/25 23:59 PRN PRN Sodium Chloride 0 ml 01/28/25 06:00 Normal Saline 10 Ml Vial IJ 01/28/25 23:59 DIRECTED PRN Sterile Water 0 ml 01/28/25 06:00 Water,Injection,Sterile 10 Ml Vial IJ 01/28/25 23:59 DIRECTED PRN PFSH Active Problems Active Problems: Problem Status Onset Code Osteoarthritis of right hip Acute M16.11 Degenerative joint disease of right knee Acute M17.11 Hyperplastic colon polyp Acute K63.5 Diabetes mellitus Chronic E11.9 Morbid obesity Acute E66.01 Screening for colon cancer Acute Z12.11 Medical History Medical History Lumbar spondylosis History of environmental allergies BPH (benign prostatic hyperplasia) Hypertension Trochanteric bursitis, right hip (04/09/18) Surgical History Surgical History History of colonoscopy (~04/2022) S/P total left hip arthroplasty History of total left hip replacement (04/02/19) Dr. Wilcox Hx of vasectomy History of back surgery X2 History of carpal tunnel release of both wrists Tobacco Smoking/Tobacco Use Status: Never Passive smoking exposure: No Alcohol Alcohol Intake: never Substance Use Substance use: Never Substance use type: does not use Vital Signs and Lab Results Vital Signs Most Recent Vital Signs in EMR: Temp Pulse Resp BP Pulse Ox 36.6 C 68 18 101/70 98 01/28/25 06:17 01/28/25 06:17 01/28/25 06:17 01/28/25 06:17 01/28/25 06:17 Lab Results Blood Type / Crossmatch: No Data to Display Complete Blood Count: White Blood Count 7.65 10^3/uL (4.4-10.8) 01/17/25 10:55 Red Blood Count 5.49 10^6/uL (4.36-5.78) 01/17/25 10:55 Hemoglobin 16.4 g/dL (13.5-17.5) 01/17/25 10:55 Hematocrit 48.6 % (40.0-50.0) 01/17/25 10:55 Platelet Count 233 10^3/uL (130-400) 01/17/25 10:55 Complete Metabolic Panel: Sodium 144 mmol/L (136-145) 01/17/25 10:55 Potassium 3.8 mmol/L (3.5-5.1) 01/17/25 10:55 Chloride 105 mmol/L (98-107) 01/17/25 10:55 Carbon Dioxide 31.4 mmol/L (21.0-32.0) 01/17/25 10:55 BUN 17 mg/dL (7-18) 01/17/25 10:55 Creatinine 1.2 mg/dL (0.70-1.30) 01/17/25 10:55 Est GFR (CKD-EPI 2020) 62.29 (mL/min/1.73m2) 01/17/25 10:55 Calcium 10.3 mg/dL (8.5-10.1) H 01/17/25 10:55 Glucose 100 mg/dL (74-106) 01/17/25 10:55 Hemoglobin A1c 6.5 % (4.5-5.7) H 01/17/25 10:20 Liver Function Panel: No Data to Display Coagulation Panel: No Data to Display Cardiac Panel: No Data to Display Arterial Blood Gas: No Data to Display Venous Blood Gas: No Data to Display Pancreas Panel: No Data to Display Thyroid Panel: No Data to Display Infectious Disease: No Data to Display Blood Cultures: No Data to Display Toxicology Panel: No Data to Display Anesthesia Assessment and Plan Anesthesia History Personal History: No History of Anesthesia Complications Family History: No Family History of Anesthesia Complications Exercise Tolerance Exercise Tolerance: Metabolic Equivalents>4 Cardiac & Pulmonary Exam Cardiac Exam: Normal S1/S2 Heart Sounds Pulmonary Exam: Clear Bilateral Breath Sounds Implantable Cardiac Device Does patient have a Pacemaker or an ICD?: No Airway Exam Known Difficult Airway: No Mallampati Class: 3 Mouth Opening: Normal (> 3cm) Thyromental Distance: Greater than 3 cm Neck Range of Motion: Full ROM Neck Circumference: Thick Teeth Condition: Normal Dentition ASA Classification ASA Score: ASA 2 Emergency Case?: No NPO Status NPO Status: NPO Clears >2 hours, Solids >8 hours Anesthesia Plan Resuscitation Status: Full Code Anesthesia Technique: General Anesthesia Airway Planned: Endotracheal Tube Monitors Used: Standard Monitors Preoperative Comments:: 79 yo male for JOSE R. Sig PMHx: HTN (atenolol, lisinopril, HCTZ, verapamil), DM2 (last A1c 6.5. Jardiance, glipizide), lumbar spondylosis/back surgery x 2, BPH. Previous Anes: - colo, prop, natural airway, no issues. - JOSE R, fent/sevo/prop, maya 2 grade 3, glide 4 grade 1. spinal was attempted w/o success? Discussed his previous JOSE R and spinal/general. He expressed frustration with how groggy he was post operatively. Back examined and surgical scar right in spinal path. He would like to proceed as GA. Discussed usual risks and also POUR and dizziness as related to his low BP and BPH.
[2025-01-28] VITALS (24 sets, daily range): BP systolic 94–130; BP diastolic 61–82; PULSE 54–68; RESP 11–25; TEMP 36.5–36.7; O2SAT 95–100; BMI 33.7
[2025-01-28] MEDS: Celecoxib 200 MG CAP 400 MG PO (06:35)
[2025-01-28] MEDS: Acetaminophen 500 MG TAB 1000 MG PO (06:35)
[2025-01-28] MEDS: Lactated Ringers 1,000 ML 80 ML IV (06:57)
--- NOTE | 2025-01-28 07:14 | W.PM.DSUDISC ---
Date of service: 01/28/25 Discharge Plan Disposition Patient Disposition: Home Condition: Good Discharge Details Reason For Visit: Right hip DJD Attending Provider: [place] Wilcox Primary Care Provider: Amanda Person Home Meds and New Rx's Prescriptions: New celecoxib [Celebrex] 200 mg capsule 200 mg PO BID PRNQty: 60 0RF Rx Instructions: Take one tablet twice daily for pain and inflammation aspirin 81 mg tablet,delayed release (DR/EC) 81 mg PO BID 30 Days Qty: 60 0RF acetaminophen 500 mg tablet 1,000 mg PO Q8H PRN Qty: 90 0RF Rx Instructions: Take two tablets up to every 8 hours as needed for pain pantoprazole 40 mg tablet,delayed release (DR/EC) 40 mg PO DAILY Qty: 14 0RF dexamethasone 4 mg tablet 4 mg PO DAILY Qty: 2 0RF Rx Instructions: Take one tablet once daily for two days docusate sodium [Colace] 100 mg capsule 100 mg PO BID Qty: 28 0RF oxycodone 5 mg tablet 5 mg PO Q6H PRNQty: 12 0RF Rx Instructions: Take one tablet up to every 6 hours as needed for severe postoperative pain Continued glipizide 10 mg tablet 5 mg PO BID Jardiance 10 mg tablet 10 mg PO DAILY lisinopril-hydrochlorothiazide 20-12.5 mg Tablet 1 tab PO DAILY levocetirizine 5 mg Tablet 5 mg PO DAILY verapamil [Calan SR] 240 MG tablet extended release 240 mg PO HS atenolol 50 MG tablet 50 mg PO DAILY finasteride 5 MG tablet 5 mg PO DAILY Discontinued aspirin [Adult Aspirin Regimen] 81 mg tablet,delayed release (DR/EC) 81 mg PO DAILY ibuprofen [Advil] 200 mg tablet 400 mg PO Q6H PRN Patient Comments: pt. reports taking aleve acetaminophen [Tylenol] 325 mg Capsule 650 mg PO Q4H PRN Discharge Instructions Additional Instructions: Total Hip Discharge Instructions Activity: The most important activity is to walk. You should try to take short walks a few times a day. You have no restrictions on movement or positioning, but do not try to force what you do. You will find some stiffness and weakness with hip flexion (lifting your knee). Do not try to strengthen this too early, continue to practice walking and stairs and this will come. - Outpatient physical therapy can be helpful to help return you to a normal gait and improve your flexibility and strength. This can start around 2 weeks. For some patients, it?s not necessary. Usually this is determined at the time of discharge or at the first post-operative visit. - You should wear the KISHA hose on both legs for 2 weeks. Dressing: Keep the surgical dressing in place for at least one week. After the first week it may be removed and replace with light gauze and tape or nothing. It may get wet after 3 days but avoid soaking the dressing. If it gets wet, just lightly pat dry. It is important to always keep some gauze between skin folds, especially when you are sitting. Spend some time with the wound exposed when you are lying flat as the incision does wrinkle onto itself. Medications: - You should take Tylenol and an anti-inflammatory Celebrex as your primary pain control medications. If the Celebrex is too expensive or not covered, please call the office for another alternative (Advil/Ibuprofen or Naproxen/Aleve). - You have been prescribed a stronger pain medication Oxycodone for breakthrough pain, take as needed as prescribed. - You have also been prescribed a stomach acid reduction agent Pantoprozole to help reduce stomach acid and reflux. - You have also been prescribed Decadron to help with post-operative nausea and pain. You will take this for two days starting tomorrow. - You will be taking Aspirin 81mg twice a day for DVT prevention unless instructed otherwise. - If you have constipation you should take Colace (which has been prescribed) or Miralax (which is available [id number]). It takes most people 3-4 days to have a bowel movement. Follow-up: 2 weeks If you have any acute concerns or questions, please do not hesitate to contact the office at [phone]. You may contact Dr. Wilcox with any questions after hours through the hospital at [phone] or on his cell phone at [phone]. Equipment/Supplies: Walker Activity:: Elevate Remove Dressings/Wound Care:: Do Not Remove Shower/Bathe:: Cover Diet:: As Tolerated Discharge Orders Discharge Orders: Discharge Order (Routine); Ordered 01/28/25 Ordered By: Omayra Gruber
[2025-01-28] MEDS: ceFAZolin 2 GM/50 ML BAG IVPB (07:39)
[2025-01-28] MEDS: TRANEXAMIC ACID/SOD. CHL. 1,000 MG/100 ML BAG 600 MG IVPB (07:45)
--- NOTE | 2025-01-28 08:55 | DI.RAD_ITS ---
Exam(s) XR HIP RT IN OR EXAM: XR HIP RT IN OR CLINICAL HISTORY: osteoarthritis right hip. TECHNIQUE: 2D digital imaging was performed. COMPARISON: No exams were available for comparison FINDINGS: Fluoroscopy provided during right hip arthroplasty. See procedure report for details. Total fluoroscopy time 25.8 seconds IMPRESSION: Radiation exposure index/cumulative dose: jo Matias= 6.0263 mGy DATA REPOSITORY: RADIATION DOSE DELIVERED:
--- NOTE | 2025-01-28 08:59 | ROE_ITS ---
Operative Note Operative Note PRE-OP DIAGNOSIS: Right Hip Osteoarthritis POST-OP DIAGNOSIS: same PROCEDURE: Right Anterior Total Hip Arthroplasty with Intraoperative Navigation SURGEON: [place] Wilcox PLASTER APPLICATOR: Omayra Gruber ANESTHESIA TYPE: Spinal Refer to Anesthesia Record ESTIMATED BLOOD LOSS: 250 PATHOLOGY: none sent TOURNIQUET TIME: 0 COMPLICATIONS: None Patient was transported to: PACU Patient's condition: stable Implants: 1. Depuy [place] Acetabular Component, 58mm 2. Depuy Acetabular Liner, [id number] 3. Depuy Actis High Offse Collared Femoral Stem, Size 9 4. Depuy Altrx Ceramic Femoral Head, Size 36+5mm Indications: I have seen Kevin in clinic for symptoms of hip arthritis, confirmed with radiographic findings. He has exhausted nonoperative methods and was having significant limitations in daily function and desired better function and less pain. I discussed the technical details of a hip replacement. I explained the risks of the procedure to include, but not limited to, bleeding, infection, pain, stiffness, fracture, damage to nerves and vessels, damage to muscles and tendons, loosening, instability, leg length inequality, need for repeat procedure, blood clot and cardiopulmonary demise. Despite these risks, Kevin elected to proceed. Findings: There was significant signs of arthritis throughout the hip. Procedure Description: Kevin was greeted in the preoperative holding area where the correct side was identified and marked. The consent was reviewed with the patient and signed. The history and physical was updated. All questions were answered. He was taken back to the operating room. A general anesthestic was then administered. The feet were wrapped with cast padding and Coban and then placed into the boot liners and then into the boots. Care was taken to protect the skin and make sure the heels were fully down and the boots were stable. The patient was then positioned onto the HANA table. Both legs were held in a neutral position. SCDs were applied. The patient was then slid down onto a peroneal post. Prophylactic antibiotics in the form of Cefazolin were administered. 1g of Tranxemic Acid was given intravenously within 30 minutes of incision. The right leg was then prepped with Chloraprep and draped in a standard fashion. A second prep with Chloraprep was performed prior to placement of a shower-curtain type drape with Iodine impregnated skin prote ction. A timeout to confirm correct identity, side and site, procedure, allergies, anesthesia, and medical concerns was performed. An obliquely oriented incision was made starting lateral to the ASIS and running distal over the Tensor Fascia Perlita (TFL) muscle belly toward the fibular head, approximately 10cm. The skin and soft tissue was dissected sharply, through Chuck?s fascia, and to the fascia of the TFL. With the fascia and superior border of the IT band identified, the fascia was incised with a new knife just above any perforators from the IT band. The TFL muscle belly was bluntly dissected away from the fascia and moved laterally. The fat between TFL and rectus was identified to ensure the dissection was not within the TFL. Blunt dissection created space between abductors and the capsule and retractor was placed over the lateral femoral neck. The fibers of the rectus femoris tendon were identified and these were freed from the anterior capsule. A second cobra retractor was placed around the medial femoral neck. The TFL was further retracted laterally to show the deep fascia. Careful dissection through this layer identified three main crossing vessels of the lateral femoral circumflex. These were cauterized in multiple locations and then cut without any noticeable bleeding. The TFL was further released bluntly from the deep fascia to expose anterior hip capsule and fat The soft tissue orthopaedic retractor was then placed beneath the TFL and against sartorius and medial soft tissues to protect and retract the soft tissues. A T-capsulotomy was then performed starting at the superior lateral acetabulum and moving distally to the intertrochanteric ridge. These capsular flaps were tagged with a No. 1 Vicryl and elevated from within. The capsular flaps were released to the shoulder of the lateral neck and to the lesser trochanter to give excellent visualization of the proximal femur. A neck osteotomy was performed using an oscillating saw based on preoperative templates. This cut started in the shoulder and of the lateral neck and exited medially. The saw was at all times directed medially to avoid injury to the greater trochanter. Gross traction was applied to the leg and the osteotomy opened. The femoral head was removed with a corkscrew, making sure to protect the TFL on its exit. Traction was released after head removal. This was measured on the back table to determine the starting reamer size. Portions of the rectus obscuring visualization were minimally elevated off the superior acetabulum. An anterior retractor was placed over the anterior wall between capsule and labrum and attached to the Gripper retraction system. The femur was rotated to 90 degrees and medial capsule was fully released until the lesser trochanter was palpable and visible; the femur was returned to 30 degrees. A posterior retractor was placed similarly between capsule and labrum. This provided excellent visualization. The contents of the cotyloid fossa were removed with electrocautery and the labrum was removed with a knife. There was a notable floor osteophyte. There was significant chondromalacia of the superior acetabulum. Acetabular reaming began with a 53mm reamer. This first reaming was directed anterior to posterior and medial to get down to the true floor. This was inspected and reamed until the true floor was reached. The anterior retractor was then released and entry and exit was provided by traction on the capsular flaps. I then reamed sequentially up to a 58mm reamer where good fit was obtained. The larger reamers were oriented based on anatomical reference of the anterior and lateral rosales to ensure proper abduction and anteversion. Positioning and size was confirmed with the fluoroscopy. A 58mm Depuy [place] acetabular component was selected. The acetabulum was reamed around the periphery with the selected acetabular size to prevent a rim fit. The deep tissues were irrigated. The acetabular component was then impacted in a position of about 40-45 degrees of abduction and 15-20 degrees of anteversion, using the patient?s anatomy as the ultimate landmark. Fluoroscopy was used to confirm this. There was excellent sizing machine and drier operator of the acetabular component and the inserting handle was removed. The acetabular liner, Depuy [id number] polyethylene liner, was inserted and lined up with the tines of the acetabular component. There was no soft tissue interposition. The liner was then impacted into position and confirmed to be well-seated. A portion of the delmy-articular cocktail was then injected around the acetabulum into the capsule and periosteum. This cocktail consisted of 123mg of Ropivacaine, 0.25mg of Epinephrine, 0.04mg of Clonidine, and 15mg of Ketorolac, diluted to 50cc. The leg was rotated to 120 degrees. Any remaining medial capsule was released until the lesser trochanter was easily palpable. A retractor was placed medially. The lateral capsule was further released into the shoulder to allow access to the greater trochanter. A Zamorano retractor was placed over the greater trochanter which allowed the trochanter to flip in front of the capsule for excellent exposure. The leg was brought down into maximal extension and 20 degrees of adduction while ensuring there was no impingement on the acetabulum. Any remnant capsule within the trochanter was released. Piriformis and obturator externis were identified and protected. There was excellent access to the proximal femur. The lateral neck remnant was removed with a rongeur. A blunt canal probe was used to identify the canal and trajectory for later broaching. A box osteotome initiated the broach course. A small curved rasp and a curved curette were used to work laterally. Broaching then began with a starter Actis broach. This was inserted manually around the trochanter and into the canal before mallet blows. The broach was seated to the neck cut level based on the neck cut and the preoperative template. Sequential broaching was continued with the Inbenta pneumatic broaching device until a tight fit was obtained with good rotational control of the femur. A trial standard neck was inserted along with a +8.5 trial head. The leg was brought out of extension and adduction and then reduced with traction and internal rotation. The leg was stable anteriorly in a position of 30 degrees of extension and 90 degrees of external rotation. Fluoroscopy was used to ensure there was no fracture and the stem was seated well. Leg lengths were checked with an AP pelvis and pelvic reference points. LoginRadius navigation system was used to confirm appropriate positioning and leg length and offset. This slightly over-corrected the leg length and under-corrected the offset. This was corrected by high offset +5mm head. Once content with the desired offset and leg lengths, the leg was brought back into extension, external rotation and adduction. The periosteum and surrounding tissue was injected with remaining portion of the delmy-articular cocktail. The proximal femur was irrigated as well as the deep tissues. The Depuy Actis High Offset collared stem, size 9, was then manually inserted into the proximal femur making sure to control rotation. It was then malleted into position with light blows, giving breaks to allow bone expansion and decrease risk of fracture. The selected Depuy Altrx Ceramic Head, size 36+5mm, was then placed onto the clean and dry trunnion and secured with impaction onto the tapered fit. The leg was brought back out of extension and adduction and reduced with traction and internal rotation. Stability was confirmed with no shuck at 90 degrees of external rotation and 30 degrees of extension. No impingement through range of motion arc. Final x-ray images were obtained with fluoroscopy to confirm adequate positioning and no intraoperative fracture. The deep tissues were thoroughly irrigated with Surgiphor, betadine solution. This was allowed to sit in the wound for 3 minutes before being thoroughly irrigated out with normal saline. The capsule was then reapproximated with the previously placed sutures and the indirect head of the rectus was inspected and reapproximated with a #1 Vicryl. The TFL fascia was finally closed with a No. 2 Stratafix, barbed suture. Deep tissues were then reapproximated with 0 Vicryl and a running 2-0 Vicryl. The skin was closed with a running 4-0 Monocryl in a subcuticular fashion. This was reinforced with skin glue. A Mepilex silver dressing was applied. At the end of the case, all counts were correct. Kevin was transferred to the hospital bed without difficulty and suffering no apparent complication. Kevin has a good prognosis. Physical therapy will start today and without res trictions, weight-bearing as tolerated. Aspirin 81mg BID will be used for DVT prophylaxis. Date of Procedure: 01/28/25
[2025-01-28] MEDS: fentaNYL 100 MCG/2 ML VIAL IVP ×2 (09:39→09:49)
--- NOTE | 2025-01-28 09:40 | W.ANESPOSTOP ---
Postoperative Evaluation Date, Time and Location Date Performed: 01/28/25 Time Performed: 09:40 Patient Location: PACU Vital Signs Most Recent Imported Vital Signs: Most Recent Vital Signs Temp Pulse Resp BP Pulse Ox 36.6 C 54 L 20 106/65 99 01/28/25 09:28 01/28/25 09:25 01/28/25 09:25 01/28/25 09:25 01/28/25 09:25 Pain Score Most Recent Pain Score: Most Recent Pain Score Pain Level 4 01/28/25 09:28 Assessment Mental Status: Awake (Alert & Oriented to Patient Baseline) Airway and Respiratory Function: Patent airway with normal (patient baseline) respiratory exam Cardiovascular Function: Hemodynamically Stable Hydration Status: Adequately Hydrated Nausea & Vomiting: No Nausea or Vomiting Pain: Pain is tolerable per patient Peripheral Nerve Block: Patient did not receive a nerve block
[2025-01-28] MEDS: Tranexamic Acid 650 MG TAB 1300 MG PO (10:32)
--- NOTE | 2025-01-28 11:19 | PT.INIE ---
PT Notes Visit Reasons: Right hip DJD Physical Therapy Day Surgery Initial Evaluation Date: 01/28/2025 Referring Doctor: Omayra Gruber APRN; Dr Wilcox PT Orders: PT CONSULT: s/p Ortho surgery Precautions: WBAT RLE Patient Profile/Admitting Diagnosis: Pt is a 79yo male presenting s/p elective Right JOSE R under general anesthesia by Dr Wilcox on 01/28/25. Post op uncomplicated. PMHX: OA R ight hip right knee DM Morbid obesity Lumbar spondylosis History of environmental allergies BPH (benign prostatic hyperplasia) Hypertension Trochanteric bursitis, right hip (04/09/18) Surgical History (Updated 05/16/22 @ 15:00 by Alysa Matamoros RN) History of colonoscopy (~04/2022) S/P total left hip arthroplasty History of total left hip replacement (04/02/19) Dr. Moody of vasectomy History of back surgery [id number] of carpal tunnel release of both wrists Social History/Home Situation: Pt resides with his in home with 3 CATHY with rail. Pt independent ADLs, ambulation without AD except recently started to use a 4WW at night Equipment Owned/DME: 4WW, raised toilet seat, Subjective: Pt reports he is feeling really good and is ready to get out of here Objective: [] General Observation: awake male semirecline on stretcher with ice to right hip, present Mental Status: A+O x 4, pleasant, cooperative, motivated to return home. Agreeable to participate in assessment Pain: right hip 2/10 ROM: BUE: WNL Right Lower Extremity: hip flexion 5- 90, abduction 10*, ER to neutral, knee and ankle WNL Left Lower Extremity: WNL Strength: BUE: 5/5 Right Lower Extremity:Hip flexion: 3- /5; hip abduction: 2+ /5; hip extension: 3- /5; hip external rotation 2/5; knee extension: >/= to 3/5; knee flexion: 3-/5 ankle DF: 3+ /5 ; ankle PF: 3+/5 Left Lower Extremity: 5/5 Sensation: intact Bed Mobility/Transfers: [] Supine to sit Independent Sit to stand SBA Stand to sit SBA cue to bring RLE forward as needed for comfort Bed to chair SBA with FWW or 4WW Pt demonstrates appropriate brake management Gait: SBA amb with FWW 50 feet reciprocal pattern, narrow BASHIR, pt with excessive IR right LE at weight acceptance. With cues pt able to place in neutral with hip width BASHIR. Pt with reduced step length BLE -SBA amb with 4WW 150 feet including turns and obstacle management . Narrow BASHIR , Reciprocal pattern, IR of RLE at weight acceptance. able to correct with cues to place toes forward.. Pt with reduced step length BLE -Stairs: 5 steps x 2 with left rail step to pattern SBA Balance: Static Sitting: Normal Dynamic Sitting: Good Static Standing: Good Dynamic Standing: Fair Special Tests: [] Mobility Limitations Standardized Measure [] [facility] AM-PAC 6 clicks Basic Mobility Inpatient Short Form: [] Raw Score: 22 CMS Score: 20.91% Informed Consent/Education: Patient instructed in purpose of PT consult. Packet containing JOSE R exercise protocol has been given to patient. Education and training on initial set of exercises x 5 reps that can be done at home have been completed with patient. Assessment: Patient is a 79yo male who presents with clinical signs and symptoms consistent with current/admitting diagnoses that have resulted to mobility limitations, gait instability, generalized weakness, and impairment of motor control as demonstrated by the following impairment level findings: 1. Decreased strength to Right hip major muscle groups 2. Impaired standing balance 3. Limitation of joint range of motion in right hip 4. Impaired functional activity tolerance Impairments are contributing to the following functional limitations: 1. Inability to safely ambulate without assistive device 2. Increase completion time for mobility ADL performance 3. Increased fall risk 4. difficulty performing stairs independently Patient is assessed as a low complexity based on the following: History: 79-year-old male with impairment level findings, functional limitations, and past medical history as indicated above Examination: Demonstrable impairment in strength, balance, and mobility level with underlying impairments and functional limitations as documented above Presentation: stable Decision Making: low Goals: N/A. Plan of Care/Treatment Plan: N/A. PT evaluation only DISCHARGE RECOMMENDATIONS:Home with HEP TREATMENT CODE/TIME: 33260/ [id number] Thank you for the opportunity to participate in the care of this patient. Sandy Condon, PT [facility]
== END 2025-01-28 11:45 | disposition home or self-care (01) ==
PROVIDERS: PCP Family Medicine; Visit Provider Student in an Organized Health Care Education/Training Program
PROC: (CPT 27130; principal; 2025-01-28 07:30)
DX: M16.11 Unilateral primary osteoarthritis, right hip (principal)
CPT/HCPCS: 20985; 27130; 97161; 73501; C1776; J0690; J1100; J2405; J2704; J3010

== ENCOUNTER 2025-02-10 11:05 | Outpatient (CLI) | payer MEDICARE, BC, SELFPAY ==
--- NOTE | 2025-02-10 10:15 | DI.RAD_ITS ---
Exam(s) XR HIP RT COMPLETE AP PELVIS EXAM: XR HIP RT COMPLETE AP PELVIS CLINICAL HISTORY: 1ST POST OP S/P R JOS ER. TECHNIQUE: 2D digital imaging was performed. Two views COMPARISON: CR XR HIP RT COMPLETE AP PELVIS from 05/30/2024 XA XR HIP RT IN OR from 01/28/2025 FINDINGS: BONES: No acute fracture is present. No bony destructive lesion is seen. JOINTS: No dislocation present. Stable alignment of bilateral hip prostheses. SOFT TISSUE: Normal. IMPRESSION: Stable appearance bilateral hip prostheses. DATA REPOSITORY: RADIATION DOSE DELIVERED:
== END 2025-02-10 11:06 | disposition home or self-care (01) ==
LOC: DIORS 11:06
PROVIDERS: PCP Family Medicine; Referring Provider Family Medicine; Visit Provider Physician Assistant
DX: Z96.641 Presence of right artificial hip joint (principal); Z47.1 Aftercare following joint replacement surgery
CPT/HCPCS: 99024; 73502

== ENCOUNTER → 2025-03-10 09:38 | Outpatient (BNVA) | payer MEDICARE, BC, SELFPAY | PROVIDERS: PCP Family Medicine; Referring Provider Family Medicine; Visit Provider Physician Assistant | DX: Z47.1 Aftercare following joint replacement surgery (principal); Z96.641 Presence of right artificial hip joint | CPT/HCPCS: 99024 ==

== ENCOUNTER 2025-06-03 20:34 | Outpatient (REF) | payer MEDICARE, BC, SELFPAY ==
[2025-06-03 19:35] LABS: Abs Immature Grans 0.06 10^3/uL (0.0-0.06); HCT 49.3 % (40.0-50.0); HGB 16.5 g/dL (13.5-17.5); Immature Grans % 0.9 %; MCH 29.1 pg (27.0-33.0); MCHC 33.5 % (32.0-36.0); MCV 87 fL (80-95); MPV 11.1 fL (8.0-11.0); Platelet Count 219 10^3/uL (130-400); RBC 5.67 10^6/uL (4.36-5.78); RDW 15.3 % (11.8-14.1); RDW-SD 47.8 fL; WBC 6.48 10^3/uL (4.4-10.8)
[2025-06-03 19:51] LABS: ALT 20 U/L (16-63); AST 18 U/L (15-37); Albumin 4.0 g/dL (3.4-5.0); Alkaline Phosphatase 89 U/L (46-116); Anion Gap 7.9 mmol/L (3-11); BUN 11 mg/dL (7-18); Bilirubin, Total 0.7 mg/dL (0.2-1.0); CO2 31.1 mmol/L (21.0-32.0); Calcium 9.8 mg/dL (8.5-10.1); Calculated LDL 98 mg/dL (<100); Chloride 104 mmol/L (98-107); Cholesterol 153 mg/dL (<200); Estimated GFR 69.14 (mL/min/1.73m2); Glucose 113 mg/dL (74-106); HDL Cholesterol 40 mg/dL (>or=40); Potassium 3.8 mmol/L (3.5-5.1); Sodium 143 mmol/L (136-145); Total Protein 7.2 g/dL (6.4-8.2); Triglyceride 77 mg/dL (<150)
[2025-06-03 20:09] LABS: Hemoglobin A1C 6.8 % (<5.7)
== END 2025-06-03 20:35 | disposition home or self-care (01) ==
LOC: NCHCN 20:34
PROVIDERS: PCP Family Medicine; Visit Provider Family Medicine
DX: E11.9 Type 2 diabetes mellitus without complications (principal)
CPT/HCPCS: 80053; 80061; 83036; 85025